=== PATIENT | male | born 2000 | race Hispanic/Latino ===

== ENCOUNTER 2024-10-17 13:57 | Emergency (ER) | payer OTHER, SELFPAY ==
--- NOTE | ~2024-10-17 | CT_ITS ---
EXAMINATION: CT abdomen pelvis wo con DATE: 10/17/2024 15:26 INDICATION: abd pain, flank pain, hematuria TECHNIQUE: Computed tomography (CT) of the abdomen and pelvis was performed without intravenous contr ast. Automated exposure control and iterative reconstruction technique were employed. The dose-length product was 545.48 mGy-cm. COMPARISON: None. FINDINGS: Lower thorax: Unremarkable Liver: Normal. Biliary/Gallbladder: Gallbladder is normal. No bile duct dilation. Pancreas: No mass or duct dilation. Spleen: Normal. Adrenals:No mass. Kidneys: No suspicious mass, obstructing stone, or hydronephrosis. GI tract: No small or large bowel dilation. Small appendicoliths. The appendix is mildly dilated to 8 mm. No significant surrounding inflammatory change. Mesentery/Peritoneum: No ascites, mass, or free air. Mild fat stranding at the mesenteric root. Retroperitoneum: No mass. Pelvis: Pelvic organs are within normal limits. Soft Tissues: Soft tissues and body wall unremarkable. Bones: No acute osseous finding. IMPRESSION: Appendix mildly dilated to 8 mm, without inflammatory change, which may be a normal finding for this patient. However, early appendicitis is not excluded. Mild stranding of the mesenteric root, may represent nonspecific mesenteric edema or mild inflammator y change from adjacent structures, such as the pancreas. Correlate with pancreatic labs. Reviewed, dictated and finalized at location K. IMPRESSION: Appendix mildly dilated to 8 mm, without inflammatory change, which may be a no rmal finding for this patient. However, early appendicitis is not excluded. Mild stranding of the mesenteric root, may represent nonspecific mesenteric panda ma or mild inflammatory change from adjacent structures, such as the pancreas. Correlate with pancreatic labs.
[2024-10-17 14:03] VITALS: BP 149/86; PULSE 70; RESP 16; TEMP 36.2; O2SAT 99
--- NOTE | 2024-10-17 14:06 | ED_ITS ---
HPI - Abdominal Pain General Chief Complaint: Urogenital-Male <Meenu Lion PA-C - Last Filed: 10/19/24 17:40> Stated Complaint: Blood in urine-lower back pressure <SARAH Chen Last Filed: 10/19/24 17:40> Time Seen by Provider: 10/17/24 14:06 <Meenu Lion PA-C - Last Filed: 10/19/24 17:40> Focused HPI: This is a 24 year old male that presents to the ER for dysuria, hematuria. Reports low back pain, abdominal pain. No previous history of kidney stones. Denies fever, vomiting. GENERAL: Well-appearing, well-nourished, and in no acute distress. HEAD: Normocephalic, atraumatic. CHEST: Clear to auscultation. No respiratory distress. HEART: Regular rate and rhythm. NEURO: Alert and oriented x3. Patient screened in triage and initial orders placed. Additional care and disposition to be based upon diagnostic testing and treatment. <Meenu Lion PA-C - Last Filed: 10/19/24 17:40> Focused HPI: This is a 24 year old male that presents to the ER for dysuria, hematuria. Reports low back pain, abdominal pain. No previous history of kidney stones. Denies fever, vomiting. GENERAL: Well-appearing, well-nourished, and in no acute distress. HEAD: Normocephalic, atraumatic. CHEST: Clear to auscultation. No respiratory distress. HEART: Regular rate and rhythm. NEURO: Alert and oriented x3. Patient screened in triage and initial orders placed. Additional care and disposition to be based upon diagnostic testing and treatment. <Helena Gutierrez PA-C - Last Filed: 10/17/24 23:47> Source: patient <SARAH Hook Last Filed: 10/17/24 23:47> Mode of arrival: ambulatory <SARAH Hook Last Filed: 10/17/24 23:47> Limitations: no limitations <SARAH Hook Last Filed: 10/17/24 23:47> History of Present Illness HPI narrative: Agree with above HPI. Reports pain and a few drops of hematuria at the end of his stream. Denies concern for STDs. States he has not been sexually active since December. Does masturbate frequent. Denies testicular pain or swelling. < SARAH Hook Last Filed: 10/17/24 23:47> Related Data Allergies/Adverse Reactions: Allergies Allergy/AdvReac Type Severity Reaction Status Date / Time No Known Allergies Allergy Verified 10/17/24 13:58 <SARAH Chen Last Filed: 10/19/24 17:40> Review of Systems 2 Review of Systems: All systems reviewed & are unremarkable except as noted in HPI. <SARAH Hook Last Filed: 10/17/24 23:47> All systems reviewed & are unremarkable except as noted in HPI and below < SARAH Hook Last Filed: 10/17/24 23:47> Exam 2 Narrative: GENERAL: Well appearing, obese with BMI of 31.6, non-toxic, in no acute distress. HEAD: Normocephalic, atraumatic. RESPIRATORY: Airway patent, respirations nonlabored. Clear to auscultation bilaterally, no rales, rhonchi, wheezing. CARDIOVASCULAR: Regular rate and rhythm without murmurs, rubs, or gallops. ABDOMINAL: Soft, no significant tenderness. Nondistended. Normoactive BS. MUSCULOSKELETAL: Moves all extremities. No gross deformities. SKIN: Warm, dry, normal color. NEURO: A&O X3. Speech clear. PSYCHIATRIC: Appropriate mood and affect. Normal interaction. <SARAH Hook Last Filed: 10/17/24 23:47> Course Vital Signs Vital signs: Vital Signs Temperature 97.2 F L 10/17/24 14:03 Pulse Rate 70 10/17/24 14:03 Respiratory Rate 16 10/17/24 14:03 Blood Pressure 149/86 H 10/17/24 14:03 Pulse Oximetry 99 10/17/24 14:03 Temperature 97.2 F L 10/17/24 14:03 Pulse Rate 70 10/17/24 14:03 Respiratory Rate 16 10/17/24 14:03 Blood Pressure 149/86 H 10/17/24 14:03 Pulse Oximetry 99 10/17/24 14:03 <Meenu Lion PA-C - Last Filed: 10/19/24 17:40> Vital Signs Temperature 97.2 F L 10/17/24 14:03 Pulse Rate 70 10/17/24 14:03 Respiratory Rate 16 10/17/24 14:03 Blood Pressure 149/86 H 10/17/24 14:03 Pulse Oximetry 99 10/17/24 14:03 Temperature 97.2 F L 10/17/24 14:03 Pulse Rate 70 10/17/24 14:03 Respiratory Rate 16 10/17/24 14:03 Blood Pressure 149/86 H 10/17/24 14:03 Pulse Oximetry 99 10/17/24 14:03 <Helena Gutierrez PA-C - Last Filed: 10/17/24 23:47> MDM - Abdominal Pain MDM Narrative Medical decision making narrative: W/u here is reassuring. Laboratory studies are unremarkable. UA is completely clear. Gonorrhea, chlamydia, Trichomonas testing is negative. Patient reports he has not been sexually active since December. CT scan of abdomen/pelvis showing some dilation of appendix without inflammatory stranding. Patient does not have any focal right lower quadrant tenderness on exam. Showing possible inflammation of pancreas. Lipase was added on and within normal range. LFTs are otherwise normal. Patient without any upper abdominal pain on exam. Discussed overall reassuring workup. Patient declined genital exam. He denies any testicular pain or swelling to suggest need for ultrasound. Discussed urethritis. He does admit to frequent masturbation. Hematuria and dysuria likely related to this. Will prescribe Pyridium for symptom relief, advised to avoid further masturbation at this time. Will refer to Urology. Discussed strict return precautions. He is in agreement with plan. Feels comfortable going home. Discharged in stable condition. <Helena Gutierrez PA-C - Last Filed: 10/17/24 23:47> Medical Records Attestation: I reviewed the patient's medical records. <Helena Gutierrez PA-C - Last Filed: 10/17/24 23:47> Lab Data Attestation: I reviewed the patient's lab results. <Helena Gutierrez PA-C - Last Filed: 10/17/24 23:47> Result diagrams: 10/17/24 14:54 10/17/24 14:54 <Meenu Lion PA-C - Last Filed: 10/19/24 17:40> Labs: Lab Results 10/17/24 10/17/24 10/17/24 Range/Units 14:45 14:46 14:54 WBC 7.1 (4.5-10.0) K/mm3 RBC 5.57 (4.6-6.20) M/mm3 Hgb 16.6 (14.0-18.0) g/dL Hct 48.4 (42.0-52.0) % MCV 86.9 (80-100) fl MCH 29.8 (26-34) pg MCHC 34.3 (32-36) g/dl RDW 12.3 (11.5-14.5) % Plt Count 245 (150-375) k/mm3 MPV 11.2 H (7.4-10.4) fl Immature Gran % (Auto) 0.4 (0-0.5) % Neut % (Auto) 68.9 (45.5-73.1) % Lymph % (Auto) 17.8 L (18.3-44.2) % Leon % (Auto) 8.1 (2.6-8.5) % Eos % (Auto) 3.7 (0-4.4) % Baso % (Auto) 1.1 (0.2-1.2) % Lymph # (Auto) 1.26 (0.9-3.2) K/mm3 Leon # (Auto) 0.6 (0.1-0.6) K/mm3 Eos # (Auto) 0.3 (0-0.3) K/mm3 Baso # (Auto) 0.1 (0.0-0.1) K/mm3 Abs Immat Gran (auto) 0.03 (0.00-0.031) K/mm3 Absolute Neuts (auto) 4.9 (1.3-6.7) K/mm3 Absolute Nucleated RBC 0.000 (0.0-0.012) K/mm3 Nucleated RBC % 0.0 (0.0-0.2) % Sodium 141 (137-145) mmol/L Potassium 3.7 (3.4-5.0) mmol/L Chloride 105 (98-107) mmol/L Carbon Dioxide 25 (22-30) mmol/L Anion Gap 11 (4-12) mmol/L BUN 15 (9-20) mg/dL Creatinine 0.79 (0.7-1.3) mg/dL Estim Creat Clear Calc 128 ml/min Estimated GFR > 60 (59 - ) Glucose 94 (65-110) mg/dL Calcium 9.2 (8.4-10.2) mg/dL Total Bilirubin 0.6 (0.2-1.3) mg/dL AST 31 (17-59) U/L ALT 36 (6-50) U/L Alkaline Phosphatase 106 (38-126) U/L Total Protein 8.0 (6.3-8.2) g/dL Albumin 5.0 (3.5-5.1) g/dL Lipase 49 (23-300) U/L Urine Color Yellow (Yellow) Urine Appearance Clear (Clear) Urine pH 7.5 (5.0-9.0) Ur Specific Gurley 1.023 (1.001-1.035) Urine Protein Negative (Negative) mg/dL Urine Glucose (UA) Negative (Negative) mg/dL Urine Ketones Negative (Negative) mg/dL Ur Blood (Man) Negative (Negative) Urine Nitrate Negative (Negative) Urine Bilirubin Negative (Negative) Urine Urobilinogen 0.2 (<2.0) mg/dL Leukocyte Esterase Rfl Negative (Negative) MACARENA/UL C. trachomatis (PCR) Not detected (NOT DETECTE) N. gonorrhoeae (PCR) Not detected (NOT DETECTE) T. vaginalis (PCR) Not detected (NOT DETECTE) <Meenu Lion PA-C - Last Filed: 10/19/24 17:40> Lab Results 10/17/24 10/17/24 10/17/24 Range/Units 14:45 14:46 14:54 WBC 7.1 (4.5-10.0) K/mm3 RBC 5.57 (4.6-6.20) M/mm3 Hgb 16.6 (14.0-18.0) g/dL Hct 48.4 (42.0-52.0) % MCV 86.9 (80-100) fl MCH 29.8 (26-34) pg MCHC 34.3 (32-36) g/dl RDW 12.3 (11.5-14.5) % Plt Count 245 (150-375) k/mm3 MPV 11.2 H (7.4-10.4) fl Immature Gran % (Auto) 0.4 (0-0.5) % Neut % (Auto) 68.9 (45.5-73.1) % Lymph % (Auto) 17.8 L (18.3-44.2) % Leon % (Auto) 8.1 (2.6-8.5) % Eos % (Auto) 3.7 (0-4.4) % Baso % (Auto) 1.1 (0.2-1.2) % Lymph # (Auto) 1.26 (0.9-3.2) K/mm3 Leon # (Auto) 0.6 (0.1-0.6) K/mm3 Eos # (Auto) 0.3 (0-0.3) K/mm3 Baso # (Auto) 0.1 (0.0-0.1) K/mm3 Abs Immat Gran (auto) 0.03 (0.00-0.031) K/mm3 Absolute Neuts (auto) 4.9 (1.3-6.7) K/mm3 Absolute Nucleated RBC 0.000 (0.0-0.012) K/mm3 Nucleated RBC % 0.0 (0.0-0.2) % Sodium 141 (137-145) mmol/L Potassium 3.7 (3.4-5.0) mmol/L Chloride 105 (98-107) mmol/L Carbon Dioxide 25 (22-30) mmol/L Anion Gap 11 (4-12) mmol/L BUN 15 (9-20) mg/dL Creatinine 0.79 (0.7-1.3) mg/dL Estim Creat Clear Calc 128 ml/min Estimated GFR > 60 (59 - ) Glucose 94 (65-110) mg/dL Calcium 9.2 (8.4-10.2) mg/dL Total Bilirubin 0.6 (0.2-1.3) mg/dL AST 31 (17-59) U/L ALT 36 (6-50) U/L Alkaline Phosphatase 106 (38-126) U/L Total Protein 8.0 (6.3-8.2) g/dL Albumin 5.0 (3.5-5.1) g/dL Lipase 49 (23-300) U/L Urine Color Yellow (Yellow) Urine Appearance Clear (Clear) Urine pH 7.5 (5.0-9.0) Ur Specific Gurley 1.023 (1.001-1.035) Urine Protein Negative (Negative) mg/dL Urine Glucose (UA) Negative (Negative) mg/dL Urine Ketones Negative (Negative) mg/dL Ur Blood (Man) Negative (Negative) Urine Nitrate Negative (Negative) Urine Bilirubin Negative (Negative) Urine Urobilinogen 0.2 (<2.0) mg/dL Leukocyte Esterase Rfl Negative (Negative) MACARENA/UL C. trachomatis (PCR) Not detected (NOT DETECTE) N. gonorrhoeae (PCR) Not detected (NOT DETECTE) T. vaginalis (PCR) Not detected (NOT DETECTE) <SARAH Hook Last Filed: 10/17/24 23:47> Imaging Data Attestation: I personally reviewed and interpreted this imaging study as follows: < SARAH Hook Last Filed: 10/17/24 23:47> Radiologist's impression: ITS Impressions Abdomen/Pelvis CT 10/17/24 15:28 IMPRESSION: Appendix mildly dilated to 8 mm, without inflammatory change, which may be a normal finding for this patient. However, early appendicitis is not excluded. Mild stranding of the mesenteric root, may represent nonspecific mesenteric edema or mild inflammatory change from adjacent structures, such as the pancreas. Correlate with pancreatic labs. <SARAH Chen Last Filed: 10/19/24 17:40> ITS Impressions Abdomen/Pelvis CT 10/17/24 15:28 IMPRESSION: Appendix mildly dilated to 8 mm, without inflammatory change, which may be a normal finding for this patient. However, early appendicitis is not excluded. Mild stranding of the mesenteric root, may represent nonspecific mesenteric edema or mild inflammatory change from adjacent structures, such as the pancreas. Correlate with pancreatic labs. <Helena Gutierrez PA-C - Last Filed: 10/17/24 23:47> Critical Care Time Critical Care Time Critical Care Time: No <SARAH Chen Last Filed: 10/19/24 17:40> Discharge Plan Discharge Clinical Impression: Urethritis <SARAH Chen Last Filed: 10/19/24 17:40> Patient Disposition: Home <SARAH Chen Last Filed: 10/19/24 17:40> Condition: Stable <SARAH Chen Last Filed: 10/19/24 17:40> Instructions: Antibiotic Form, Nonspecific Urethritis in Men (ED), Urethritis (ED) <SARAH Chen Last Filed: 10/19/24 17:40> Additional Instructions: Take Pyridium as prescribed for painful urination. Continue to monitor symptoms. Follow-up with urology for further evaluation. Return to the ED if you experience worsening or severe pain/bleeding, pain or swelling in testicles, severe abdominal or back pain, unable to keep down food or drink, persistent fevers, or any other symptoms of concern. <SARAH Chen Last Filed: 10/19/24 17:40> Patient Language: Turkish <SARAH Chen Last Filed: 10/19/24 17:40> Prescriptions: New phenazopyridine [Pyridium] 200 mg tablet 200 mg PO TID 0 Days Qty: 6 0RF <SARAH Chen Last Filed: 10/19/24 17:40> Follow-up/Referrals: Salvador Guerrero MD [Physician] - (UROLOGY) PHYSICIAN,TESTER/LIFT TRUCKER [Primary Care Provider] - <SARAH Chen Last Filed: 10/19/24 17:40> Time of Disposition: 18:05 <SARAH Chen Last Filed: 10/19/24 17:40> 18:05 <SARAH Hook Last Filed: 10/17/24 23:47>
[2024-10-17 15:04] LABS: Basophils Absolute Auto 0.1 K/mm3 (0.0-0.1); Basophils Percent Auto 1.1 % (0.2-1.2); Eosinophils Absolute Auto 0.3 K/mm3 (0-0.3); Eosinophils Percent Auto 3.7 % (0-4.4); Hematocrit 48.4 % (42.0-52.0); Hemoglobin 16.6 g/dL (14.0-18.0); Immature Granulocyte Absolute 0.03 K/mm3 (0.00-0.031); Immature Granulocyte Percent A 0.4 % (0-0.5); Lymphocytes Absolute Auto 1.26 K/mm3 (0.9-3.2); Lymphocytes Percent Auto 17.8 % (18.3-44.2); Mean Corpuscular HGB Conc 34.3 g/dl (32-36); Mean Corpuscular Hemoglobin 29.8 pg (26-34); Mean Corpuscular Volume 86.9 fl (80-100); Mean Platelet Volume 11.2 fl (7.4-10.4); Monocytes Absolute Auto 0.6 K/mm3 (0.1-0.6); Monocytes Percent Auto 8.1 % (2.6-8.5); Neutrophils Absolute Auto 4.9 K/mm3 (1.3-6.7); Neutrophils Percent Auto 68.9 % (45.5-73.1); Platelet Count Result 245 k/mm3 (150-375); Red Blood Count 5.57 M/mm3 (4.6-6.20); Red Cell Distribution Width 12.3 % (11.5-14.5); White Blood Count 7.1 K/mm3 (4.5-10.0)
[2024-10-17 15:05] LABS: Add Urine Microscopic? NO; Appearance Urine Clear (Clear); Bilirubin Urine Negative (Negative); Blood Urine Negative (Negative); Color Urine Yellow (Yellow); Glucose Urine UA Negative (Negative); Ketones Urine Negative (Negative); Leukocyte Esterase Ur Negative LEU/UL (Negative); Nitrate Urine Negative (Negative); Protein Urine Negative (Negative); Specific Grav Ur 1.023 (1.001-1.035); Urobilinogen Urine 0.2 mg/dL (<2.0); pH Urine 7.5 (5.0-9.0)
[2024-10-17 15:28] LABS: Alanine Aminotransferase 36 U/L (6-50); Alkaline Phosphatase 106 U/L (38-126); Anion Gap 11 mmol/L (4-12); Aspartate Amino Transferase 31 U/L (17-59); Bilirubin,Total 0.6 mg/dL (0.2-1.3); Blood Urea Nitrogen 15 mg/dL (9-20); Calcium 9.2 mg/dL (8.4-10.2); Carbon Dioxide 25 mmol/L (22-30); Chloride 105 mmol/L (98-107); Estimated CRCL calculation 128 ml/min; Estimated Glomerular Filt Rate > 60; Glucose 94 mg/dL (65-110); Potassium 3.7 mmol/L (3.4-5.0); Sodium 141 mmol/L (137-145)
[2024-10-17 17:22] LABS: Lipase 49 U/L (23-300)
[2024-10-17 17:28] LABS: Trichomonas Vag PCR NOT DETECTED (NOT DETECTE)
[2024-10-17 17:53] LABS: Chlamydia trachomatis NOT DETECTED (NOT DETECTE); Neisseria gonorrhoeae PCR NOT DETECTED (NOT DETECTE)
--- OUTSIDE RECORDS SUMMARY | 2024-10-17 18:10 | XMS_ITS | Clinical Summary ---
Author Organization [facility] Address [address] [address] Phone Care Team Providers Care Brassiere Cup Mold Cutter Name Role Phone Reynaldo Mcgee MD Primary Care Provider + Allergies No known active allergies Medications hydrOXYzine (ATARAX) 25 MG Tablet Take 25 mg by mouth every 4 hours as needed. 07/23/2022 Active propranolol (INDERAL) 10 MG Tablet Take 1 Tablet by mouth 2 times daily as needed. 90 Tablet 08/19/2022 Active QUEtiapine Fumarate 300 MG Tablet Take 1 Tablet by mouth nightly. 30 Tablet 09/24/2022 Active sertraline (ZOLOFT) 50 MG TabletIndicatio ns:Panic Disorder Take 1 Tablet by mouth daily. Indications: Panic Disorder 30 Tablet 09/24/2022 Active Family History Medical History Relation Name Comments ADD / ADHD Brother Alcohol Abuse Father No Known Problems Mother ADD / ADHD Sister Relation Name Status Comments Brother Alive Father Alive Mother Alive Sister Alive Social History Tobacco Use Types Packs/Day Years Used Date Smoking Tobacco: Former Cigarettes Smokeless Tobacco: Former Tobacco Cessation:Counseling Given: Not Answered Alcohol Use Standard Drinks/Week Comments Not Currently 0 (1 standard drink = 0.6 oz pur e alcohol) last drank end june Sexually Active Control Partners Comments Not Currently Sex and Gender Information Value Date Recorded Sex Assigned at Not on file 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 Gender Identity Not on file Sexual Orientation Not on file Last Filed Vital Signs Vital Sign Reading Time Taken Comments Blood Pressure 100/65 09/24/2022 11:15 AM CDT Pulse 98 09/24/2022 11:15 AM CDT Temperature 36.2 C (97.2 F) 09/24/2022 11:15 AM CDT Respiratory Rate 18 09/24/2022 11:15 AM CDT Oxygen Saturation - - Inhaled Oxygen Concentration - - Weight 69.9 kg (154 lb) 08/11/2022 9:29 AM CDT Height 180.3 cm (5' 11 ) 08/11/2022 9:29 AM CDT Body Mass Index 21.48 08/11/2022 9:29 AM CDT Plan of Treatment Health Maintenance Due Date Last Done Comments Hepatitis C Virus (HCV) Screening 2001 Meningococcal B Immunization (1 of 2 - Standard) 2017 Influenza Immunization (#1) 01/31/202404/02, 04/26/2007, 04/16/2006 SARS-COV-2 Immunization ( season) 2024 06/21/2021, 09/27/2020, 09/06/2020 Respiratory Syncytial Virus (RSV) Immunization (Adult) (1 - 1-dose 75+ series) 01/04/2076 Hepatitis B Immunization Completed 002, 2001, 2001 Pneumococcal Immunization Combined Aged Out 2001, 2001, 2001 No longer eligible based on patient's age to complete this topic DTaP/Tdap/Td Immunization Discontinued 2011, 01/24/2005, 07/06/2002, Additional history exists TdaP Immunization Completed 11/27/2011 Human Papillomavirus (HPV) Immunization Completed 04/18/2013, 11/30/2012, 09/30/2012 Meningococcal Immunization (ACWY) Completed 10/28/2017, 09/30/2012 Rotavirus Immunization Aged Out No lo nger eligible based on patient's age to complete this topic Insurance [employer] Care Teams Brassiere Cup Mold Cutter Relationship Specialty Start Date End Date Reynaldo Mcgee MD [address] [address] PCP - General Family Medicine 08/11/22
--- OUTSIDE RECORDS SUMMARY | 2024-10-17 18:10 | XMS_ITS | Encounter Summary ---
Author Organization [facility] Address [address] [place] [address] Phone Care Team Providers Care Convenience Store Clerk Name Role Phone Reynaldo Mcgee MD Primary Care Provider + Encounter Details Date Type Department Care Team (Late st Contact Info) Description 10/03/2022 Lab Requisition [facility] [address] [place] [id number] Otilia Shah, LINDA, PRIVATE BRANCH EXCHANGE SERVICE ADVISER [address] [place], [place] [id number] Alcohol dependence, uncomplicated (HCC); Cannabis dependence, uncomplicated (HCC); Bipolar disorder, unspecified (HCC) Social History Tobacco Use Types Packs/Day Years Used Date Smoking Tobacco: Former Cigarettes Smokeless Tobacco: Former Alcohol Use Standard Drinks/Week Comments Not Currently 0 (1 standard drink = 0.6 oz pur e alcohol) last drank end june Sexually Active Control Partners Comments Not Currently Sex and Gender Information Value Date Recorded Sex Assigned at Not on file 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 No / Unsure 09/25/2022 9:10 AM CDT documented as of this encounter Plan of Treatment Not on file documented as of this encounter Procedures Procedure Name Priority Date/Time Associated Diagnosis Comments CBC WITH AUTO DIFFERENTIAL Routine 10/03/2022 11:47 AM CDT Alcohol dependence, uncomplicated (HCC) Cannabis dependence, uncomplicated (HCC) Bipolar disorder, unspecified (HCC) COMPLETE BLOOD COUNT (CBC) WITH DIFF Routine 10/03/2022 11:47 AM CDT Alcohol dependence, uncomplicated (HCC) Cannabis dependence, uncomplicated (HCC) Bipolar disorder, unspecified (HCC) MAGNESIUM (MG) Routine 10/03/2022 7:40 AM CDT Alcohol dependence, uncomplicated (HCC) Cannabis dependence, uncomplicated (HCC) Bipolar disorder, unspecified (HCC) CMP (COMPREHENSIVE METABOLIC PANEL) Routine 10/03/2022 7:40 AM CDT Alcohol dependence, uncomplicated (HCC) Cannabis dependence, uncomplicated (HCC) Bipolar disorder, unspecified (HCC) documented in this encounter Results * (ABNORMAL) CBC WITH AUTO DIFFERENTIAL (10/03/2022 11:47 AM CDT) WBC 6.97 4.00 - 12.00 10(3)/mcL 10/03/2022 12:51 PM CDT [facility] RBC 5.50 4.40 - 5.80 10(6)/mcL 10/03/2022 12:51 PM CDT [facility] HEMOGLOBIN (HGB) 16.6(H) 13.0 - 16.5 g/dL 10/03/2022 12:51 PM CDT [facility] HEMATOCRIT (HCT) 48.4 38.0 - 50.0 % 10/03/2022 12:51 PM CDT [facility] MCV 88.0 82.0 - 96.0 fL 10/03/2022 12:51 PM CDT [facility] MCH 30.2 26.0 - 32.0 pg 10/03/2022 12:51 PM CDT [facility] MCHC 34.3 31.0 - 36.0 g/dL 10/03/2022 12:51 PM CDT [facility] PLATELET COUNT 261 140 - 440 10(3)/mcL 10/03/2022 12:51 PM CDT [facility] RDW 12.7 11.8 - 15.5 % 10/03/2022 12:51 PM CDT [facility] MPV 11.0 8.0 - 12.6 fL 10/03/2022 12:51 PM CDT [facility] NEUTROPHILS 55.1 40.0 - 68.0 % 10/03/2022 12:51 PM CDT [facility] LYMPHOCYTES 27.0 19.0 - 49.0 % 10/03/2022 12:51 PM CDT [facility] MONOCYTES 9.3 3.0 - 13.0 % 10/03/2022 12:51 PM CDT [facility] EOSINOPHILS 7.5 0.0 - 8.0 % 10/03/2022 12:51 PM T [facility] BASOPHILS 1.1(H) 0.0 - 1.0 % 10/03/2022 12:51 PM CDT [facility] ABSOLUTE NEUTROPHILS 3.84 1.40 - 5.30 10(3)/[facility] 10/03/2022 12:51 PM CDT [facility] ABSOLUTE LYMPHOCYTES 1.88 0.90 - 3.30 10(3)/[facility] 10/03/2022 12:51 PM CDT [facility] ABSOLUTE MONOCYTES 0.65 0.10 - 0.90 10(3)/[facility] 10/03/2022 12:51 PM CDT [facility] ABSOLUTE EOSINOPHIL 0.52(H) 0.00 - 0.50 10(3)/[facility] 10/03/2022 12:51 PM CDT [facility] ABSOLUTE BASOPHILS 0.08 0.00 - 0.10 10(3)/[facility] 10/03/2022 12:51 PM [facility] NRBC PER 100 WBC 0 10/04/19 12:51 PM [facility] Blood Venipuncture / Unknown 10/03/2022 11:47 AM CDT 10/03/2022 10:12 AM CDT Otilia Shah APRN, NEGRO HEMATOLOGY ORDERABLE S Final Result Performing Organization Address [facility]/ZIP Co de Phone Number [place] [address], [place] [phone] * MAGNESIUM (MG) (10/03/2022 7:40 AM CDT) MAGNESIUM 2.4 1.6 - 2.6 mg/dL [facility] [id number] B 10/03/2022 11:26 AM CDT [facility] Blood Venipuncture / Unknown 10/03/2022 7:40 AM CDT 10/03/2022 10:12 AM CDT Otilia Shah APRN, NEGRO CHEMISTRY ORDERABLES Final Result Performing Organization Address [facility]/ZIP Co de Phone Number [place] [address], [place] [phone] * (ABNORMAL) CMP (COMPREHENSIVE METABOLIC PANEL) (10/03/2022 7:40 AM CDT) SODIUM 140 136 - 145 mmol/L [facility] [id number] B 10/03/2022 11:26 AM CDT [facility] POTASSIUM 3.7 3.5 - 5.1 mmol/L [facility] [id number] B 10/03/2022 11:26 AM CDT [facility] CHLORIDE 104 98 - 107 mmol/L [facility] [id number] B 10/03/2022 11:26 AM CDT [facility] CO2, VENOUS 27 22 - 30 mmol/L [facility] [id number] B 10/03/2022 11:26 AM CDT [facility] ANION GAP 9.0 <18.0 mmol/L [facility] [id number] B 10/03/2022 11:26 AM CDT [facility] GLUCOSE 84 70 - 99 mg/dL [facility] [id number] B 10/03/2022 11:26 AM CDT [facility] BUN 18 9 - 21 mg/dL [facility] [id number] B 10/03/2022 11:26 AM CDT [facility] CREATININE, BLOOD 0.97 0.70 - 1.30 mg/dL [facility] [id number] B 10/03/2022 11:26 AM CDT [facility] BUN/CREATININE RATIO 19 12 - 20 ratio [facility] [id number] B 10/03/2022 11:26 AM CDT [facility] TOTAL PROTEIN 7.7 6.3 - 8.2 g/dL [facility] [id number] B 10/03/2022 11:26 AM CDT [facility] ALBUMIN 5.1(H) 3.5 - 5.0 g/dL [facility] [id number] B 10/03/2022 11:26 AM CDT [facility] A/G RATIO 2.0 1.0 - 2.2 [facility] [id number] B 10/03/2022 11:26 AM CDT [facility] CALCIUM 9.7 8.7 - 10.5 mg/dL [facility] [id number] B 10/03/2022 11:26 AM CDT [facility] T BILI 0.7 0.2 - 1.2 mg/dL [facility] [id number] B 10/03/2022 11:26 AM T [facility] SGOT (AST) 31 5 - 34 U/L [facility] [id number] B 10/03/2022 11:26 AM CDT [facility] SGPT (ALT) 81(H) 0 - 55 U/L [facility] [id number] B 10/03/2022 11:26 AM T [facility] ALKALINE PHOSPHATASE 98 40 - 150 U/L [facility] [id number] B 10/03/2022 11:26 AM T [facility] GFR, ESTIMATED >60 >=60 [facility] [id number] B 10/03/2022 11:26 AM CDT [facility] Comment: Creatinine Clearance is the preferred criteria for selecting drug dose adjustments in renally impaired patients. The GFR is provided as additional pertinent clinical information. GFR is reported in mL/min/1.73 sq m. Calculation based on the Chronic Kidney Disease Epidemiology Collaboration (CKD- EPI) equation refit without adjustment for race. GFR, EST. >60 >=60 [facility] [id number] B 10/03/2022 11:26 AM CDT [facility] GFR, EST. NONAFRICAN >60 >=60 [facility] [id number] B 10/03/2022 11:26 AM CDT [facility] Blood Venipuncture / Unknown 10/03/2022 7:40 AM CDT 10/03/2022 10:12 AM CDT us Otilia Shah MANUAL TESTER, PRIVATE BRANCH EXCHANGE SERVICE ADVISER CHEMISTRY ORDERABLES Final Result Performing Organization Address [facility]/State/[facility] Co de Phone Number [facility] [address] [place] [address], [place] [phone] documented in this encounter Visit Diagnoses Diagnosis Alcohol dependence, uncomplicated (HCC) Cannabis dependence, uncomplicated (HCC) Cannabis dependence, unspecified Bipolar disorder, unspecified (HCC) Bipolar disorder, unspecified documented in this encounter Care Teams Convenience Store Clerk Relationship Specialty Start Date End Date Reynaldo Mcgee MD [address] [address] PCP - General Family Medicine 08/11/22 documented as of this encounter
--- OUTSIDE RECORDS SUMMARY | 2024-10-17 18:10 | XMS_ITS | Encounter Summary ---
Author Organization [facility] Address [address] [place] [address] Care Team Providers Care Collection Technician Name Role Phone Sailaja Jon MD Primary Care Provider [phone] Bessy Escobedo MD Unavailable [phone] Bessy Xavier MD Unavailable Unavailable Thong Yun MD Unavailable [phone] Atiya Romero RN Unavailable Unavailable Nurse, Nr RN Unavailable Unavailable Lynn Mooney MD Unavailable [phone] Yoli Charlton Unavailable Unavailable Candelaria Arreola MD Unavailable Unavaila Param Brock MD Primary Care Provider [phone] Encounter Details Date Type Department Care Team (Late st Contact Info) Description 2001 [facility] [address] [facility] [place] [address] Bessy Escobedo MD [address] [place] [address] Social History Tobacco Use Types Packs/Day Years Used Date Smoking Tobacco: Never Assessed Sex and Gender Information Value Date Recorded Sex Assigned at Not on file Gender Identity Not on file Sexual Orientation Not on file documented as of this encounter Plan of Treatment Not on file documented as of this encounter Visit Diagnoses Not on filedocumented in this encounter Care Teams Collection Technician Relationship Specialty Start Date End Date Sailaja Jon MD [facility] [address], [address] [place], [place] [address] PCP - General 08/23/03 10/15/16 Param Woods MD PCP - General Pediatrics 10/16/16 Bessy Escobedo MD [address] [place] [address] 11/16/09 Bessy Xavier MD [address] [place] [address] 11/16/09 Thong Yun MD [address] [place] [id number] 11/16/09 Atiya Romero, RN 11/16/09 Nurse, Nr, RN 11/16/09 Lynn Mooney MD [facility] [address], [address] [place] [address] 11/16/09 Yoli Charlton 11/16/09 Candelaria Arreola MD 11/16/09 documented as of this encounter
--- OUTSIDE RECORDS SUMMARY | 2024-10-17 18:10 | XMS_ITS | Encounter Summary ---
Author Organization [facility] Address [address] [place] [address] Care Team Providers Care Clinical Technician Name Role Phone Sailaja Jon MD Primary Care Provider [phone] Bessy Escobedo MD Unavailable [phone] Bessy Xavier MD Unavailable Unavailable Thong Yun MD Unavailable [phone] Atiya Romero RN Unavailable Unavailable Nurse, Nr RN Unavailable Unavailable Lynn Mooney MD Unavailable [phone] Yoli Charlton Unavailable Unavailable Candelaria Arreola MD Unavailable Unavaila Param Brock MD Primary Care Provider [phone] Encounter Details Date Type Department Care Team (Late st Contact Info) Description 2001 Duplicate - Created in Error [address] [place] [address] Sailaja Jon MD [address] [place] [address] [address] [place] [address] Social History Tobacco Use Types Packs/Day Years Used Date Smoking Tobacco: Never Assessed Sex and Gender Information Value Date Recorded Sex Assigned at Not on file Gender Identity Not on file Sexual Orientation Not on file documented as of this encounter Plan of Treatment Not on file documented as of this encounter Visit Diagnoses Not on filedocumented in this encounter Care Teams Clinical Technician Relationship Specialty Start Date End Date Sailaja Jon MD [address] [facility] [address], [address] [place], [place] [address] PCP - General 08/23/03 10/15/16 Param Woods MD PCP - General Pediatrics 10/16/16 Bessy Escobedo MD [address] [place] [address] 11/16/09 Bessy Xavier MD [address] [place] [address] 11/16/09 Thong Yun MD [address] [place] [address] 11/16/09 Atiya Romero, RN 11/16/09 Nurse, Nr, RN 11/16/09 Lynn Mooney MD [facility] [address], [address] [place] [address] 11/16/09 Yoli Charlton 11/16/09 Candelaria Arreola MD 11/16/09 documented as of this encounter
--- OUTSIDE RECORDS SUMMARY | 2024-10-17 18:10 | XMS_ITS | Encounter Summary ---
Author Organization [facility] Address [address] [place] [address] Care Team Providers Care Taker Off Drying Kiln Name Role Phone Sailaja Jon MD Primary Care Provider [phone] Bessy Escobedo MD Unavailable [phone] Bessy Xavier MD Unavailable Unavailable Thong Yun MD Unavailable [phone] Atiya Romero RN Unavailable Unavailable Nurse, Shanna RN Unavailable Unavailable Lynn Mooney MD Unavailable [phone] Yoli Charlton Unavailable Unavailable Candelaria Arreola MD Unavailable Unavaila Param Brock MD Primary Care Provider [phone] Encounter Details Date Type Department Care Team (Late st Contact Info) Description 2001 Conversion [facility] Bessy Escobedo MD [address] [place] [address] Social History Tobacco Use Types Packs/Day Years Used Date Smoking Tobacco: Never Assessed Sex and Gender Information Value Date Recorded Sex Assigned at Not on file Gender Identity Not on file Sexual Orientation Not on file documented as of this encounter Plan of Treatment Not on file documented as of this encounter Procedures Procedure Name Priority Date/Time Associated Diagnosis Comments CHEST, PA AND LAT ([id number]) Routine 2001 1:24 PM CDT documented in this encounter Results * CHEST, PA AND LAT (2001 1:24 PM CDT) REPORT STATUS CHEST, PA & LAT CPT: [id number] DATE: 01, 1340 HOURS COMPARISON: NOT AVAILABLE HISTORY: WHEEZING FINDINGS: AP AND LATERAL VIEWS OF THE CHEST DEMONSTRATE HYPERINFLATION OF THE LUNGS BILATERALLY. THERE IS EVIDENCE OF INCREASED PERIBRONCHIAL CUFFING. NO EFFUSIONS, PNEUMOTHORACES, OR INFILTRATES. THE CARDIAC SILHOUETTE IS NORMAL. THIS EXAMINATION AND REPORT HAVE BEEN REVIEWED BY THE ATTENDING RADIOLOGIST WHOSE NAME APPEARS ON THIS REPORT. IMPRESSION: 1. FINDINGS CONSISTENT WITH BRONCHIOLITIS. REPORT ELECTRONICALLY SIGNED ALBERTO SANTIAGO M.D. DXRAD Anatomical Region Laterality Modality Other 2001 1:24 PM CDT Narrative 2001 1:24 PM CDT Ordered by an unspecified provider. Provider Unknown RADIOLOGY documented in this encounter Visit Diagnoses Not on filedocumented in this encounter Care Teams Taker Off Drying Kiln Relationship Specialty Start Date End Date Sailaja Jon MD [address] [facility] [address], [address] [place], [place] [address] PCP - General 08/23/03 10/15/16 Param Woods MD PCP - General Pediatrics 10/16/16 Bessy Escobedo MD [facility] [address], [address] [place] [address] 11/16/09 Bessy Xavier MD [facility] [address], [address] [place] [address] 11/16/09 Thong Yun MD [address] [place] [address] 11/16/09 Atiya Romero, RN 11/16/09 Nurse, Nr, RN 11/16/09 Lynn Mooney MD [address] [place] [address] 11/16/09 Yoli Charlton 11/16/09 Candelaria Arreola MD 11/16/09 documented as of this encounter
--- OUTSIDE RECORDS SUMMARY | 2024-10-17 18:10 | XMS_ITS | Encounter Summary ---
Author Organization [facility] Address [address] [place] [address] Care Team Providers Care Test Consultant Name Role Phone Sailaja Jon MD Primary Care Provider [phone] Bessy Escobedo MD Unavailable [phone] Bessy Xavier MD Unavailable Unavailable Thong Yun MD Unavailable [phone] Atiya Romero RN Unavailable Unavailable Nurse, Nr RN Unavailable Unavailable Lynn Mooney MD Unavailable [phone] Yoli Charlton Unavailable Unavailable Candelaria Arreola MD Unavailable Unavaila Param Brock MD Primary Care Provider [phone] Encounter Details Date Type Department Care Team (Late st Contact Info) Description 2001 Duplicate - Created in Error [address] [place] [address] Sailaja Jon MD [address] [place] [address] [address], [address] [place] [address] Social History Tobacco Use Types [...] on filedocumented in this encounter Care Teams Test Consultant Relationship Specialty Start Date End Date Sailaja Jon MD [address] [facility] [address], [address] [place], [place] [address] PCP - General 08/23/03 10/15/16 Param Woods MD PCP - General Pediatrics 10/16/16 Bessy Escobedo MD [address], [address] [place] [address] 11/16/09 Bessy Xavier MD [address], [address] [place] [address] 11/16/09 Thong Yun MD [address] [place] [address] 11/16/09 Atiya Romero, RN 11/16/09 Nurse, Nr, RN 11/16/09 Lynn Mooney MD [facility] [address], [address] [place] [address] 11/16/09 Yoli Charlton 11/16/09 Candelaria Arreola MD 11/16/09 documented as of this encounter
--- OUTSIDE RECORDS SUMMARY | 2024-10-17 18:11 | XMS_ITS | Encounter Summary ---
Author Organization [facility] Address [address] [place] [address] Care Team Providers Care Eviscerator Name Role Phone Bessy Escobedo MD Unavailable [phone] Bessy Xavier MD Unavailable Unavailable Thong Yun MD Unavailable [phone] Atiya Romero RN Unavailable Unavailable Nurse, Shanna RN Unavailable Unavailable Lynn Mooney MD Unavailable [phone] Yoli Charlton Unavailable Unavailable Candelaria Arreola MD Unavailable Unavaila Param Brock MD Primary Care Provider [phone] Encounter Details Date Type Department Care Team (Late st Contact Info) Description 11/18/[address] [address] Param Woods MD [address] [place] [id number] <No scans attached> Social History Tobacco Use Types Packs/Day Years Used Date Smoking Tobacco: Never Smokeless Tobacco: Never Alcohol Use Standard Drinks/Week Comments No 0 (1 standard drink = 0.6 oz pur e alcohol) Sex and Gender Information Value Date Recorded Sex Assigned at Not on file Gender Identity Not on file Sexual Orientation Not on file documented as of this encounter Plan of Treatment Not on file documented as of this encounter Visit Diagnoses Not on filedocumented in this encounter Care Teams Eviscerator Relationship Specialty Start Date End Date Param Woods MD PCP - General Pediatrics 10/16/16 Bessy Escobedo MD [address] [place] [address] 11/16/09 Bessy Xavier MD [facility] [address], [address] [place] [address] 11/16/09 Thong Yun MD [address] [place] [address] 11/16/09 Atiya Romero, RN 11/16/09 Nurse, Nr, RN 11/16/09 Lynn Mooney MD [facility] [address], [address] [place] [address] 11/16/09 Yoli Charlton 11/16/09 Candelaria Arreola MD 11/16/09 documented as of this encounter
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
--- OUTSIDE RECORDS SUMMARY | 2024-10-17 18:11 | XMS_ITS | Encounter Summary ---
Author Organization [facility] Address [address] [place] [address] Care Team Providers Care Financial Cost Analyst Name Role Phone Sailaja Jon MD Primary Care Provider [phone] Bessy Escobedo MD Unavailable [phone] Bessy Xavier MD Unavailable Unavailable Thong Yun MD Unavailable [phone] Atiya Romero RN Unavailable Unavailable Nurse, Nr RN Unavailable Unavailable Lynn Mooney MD Unavailable [phone] Yoli Charlton Unavailable Unavailable Candelaria Arreola MD Unavailable Unavaila Param Brock MD Primary Care Provider [phone] Encounter Details Date Type Department Care Team (Late st Contact Info) Description 10/04/[address] [place] [address] Sailaja Jon MD [address] [place] [address] [address], [address] [place] [address] <No scans attached> Social History Tobacco Use Types Packs/Day Years Used Date Smoking Tobacco: Never Alcohol Use Standard Drinks/Week Comments [...] on filedocumented in this encounter Care Teams Financial Cost Analyst Relationship Specialty Start Date End Date Sailaja Jon MD [facility] [address], [address] [place], [place] [address] PCP - General 08/23/03 10/15/16 Param Woods MD PCP - General Pediatrics 10/16/16 Bessy Escobedo MD [address], [address] [place] [address] 11/16/09 Bessy Xavier MD [facility] [address], [address] [place] [address] 11/16/09 Thong Yun MD [address] [place] [id number] 11/16/09 Aitya Romero, RN 11/16/09 Nurse, Nr, RN 11/16/09 Lynn Mooney MD [facility] [address], [address] [place] [address] 11/16/09 Yoli Charlton 11/16/09 Candelaria Arreola MD 11/16/09 documented as of this encounter
--- OUTSIDE RECORDS SUMMARY | 2024-10-17 18:11 | XMS_ITS | Encounter Summary ---
Author Organization [facility] Address [address] [place] [address] Care Team Providers Care Family Court Registrar Name Role Phone Sailaja Jon MD Primary Care Provider [phone] Bessy Escobedo MD Unavailable [phone] Bessy Xavier MD Unavailable Unavailable Thong Yun MD Unavailable [phone] Atiya Romero RN Unavailable Unavailable Nurse, Nr RN Unavailable Unavailable Lynn Mooney MD Unavailable [phone] Yoli Charlton Unavailable Unavailable Candelaria Arreola MD Unavailable Unavaila Param Brock MD Primary Care Provider [phone] Encounter Details Date Type Department Care Team (Late st Contact Info) Description 04/06/2002 Duplicate - Created in Error [address] [place] [address] Sailaja Jon MD [address] [place] [address] [address], [address] [place] [address] Social History Tobacco Use Types [...] on filedocumented in this encounter Care Teams Family Court Registrar Relationship Specialty Start Date End Date Sailaja Jon MD [address] [facility] [address], [address] [place], [place] [address] PCP - General 08/23/03 10/15/16 Param Woods MD PCP - General Pediatrics 10/16/16 Bessy Escobedo MD [address], [address] [place] [address] 11/16/09 Bessy Xavier MD [address], [address] [place] [address] 11/16/09 Thong Yun MD [address] [place] [id number] 11/16/09 Atiya Romero, RN 11/16/09 Nurse, Nr, RN 11/16/09 Lynn Mooney MD [facility] [address], [address] [place] [address] 11/16/09 Yoli Charlton 11/16/09 Candelaria Arreola MD 11/16/09 documented as of this encounter
--- OUTSIDE RECORDS SUMMARY | 2024-10-17 18:11 | XMS_ITS | Referral Summary ---
Author Organization [facility] Address [address] [place] [address] Care Team Providers Care Blood Bank Specialist Name Role Phone Jeyson Mcgee MD Primary [...] pain 07/16/2022 Excessive drinking of alcohol 07/16/2022 snf current use of cannabis 07/14/2022 Bipolar I disorder, most rec ent episode mixed, severe without psychotic features (CMD) 01/30/2021 Panic disorder without agoraphobia 11/20/2017 Attention deficit hyperactivity disorder (ADHD) 05/22/2006 Immunizations Immunization Administration Dates Next Due CHRIS Intermolecular 12Y+ (Requires Dilution) 09/27/2020 ,09/27/2020,09/06/2020 DTaP, 5 [...] Rho(D)-IG IM 05/07/2005,05/07/2005 Tdap 11/27/2011 Varicella 12/21/2009,04/06/2002 Social History Tobacco Use Types Packs/Day Years [...] phone, visiting friends or family, going to taoist or club meetings) 5 or more times [...] on file Legal Sex Male 2:28 PM HEALTH CLUB ATTENDANT Gender Identity Not on file Sexual Orientation [...] (148 lb 9.4 oz) 07/15/2022 10:05 PM HEALTH CLUB ATTENDANT Height 180.3 cm (5' 11 ) 07/15/2022 10:05 PM HEALTH CLUB ATTENDANT Body Mass Index 20.72 07/15/2022 10:05 PM HEALTH CLUB ATTENDANT Functional Status * RETIRED Are you deaf or do you have serious difficulty hearing? Answer Date of Assessment Author No 07/15/2022 10:41 PM Raquel Goode, RN * RETIRED Are you blind or do you have serious difficulty seeing, even when wearing glasses? Answer Date of Assessment Author No 07/15/2022 10:41 PM Raquel Goode RN Plan of Treatment Not on file Insurance [employer] Advance Directives Documents on File Type Date Recorded Patient Wood Cutter Expl anation Directives-Other 07/18/2022 11:59 AM [facility] e to Person Making a Declaration for Mental Health Treatment * Full Resuscitation (Latest Code Status on File) Date Activated Date Inactivated Comments 07/15/2022 11:24 PM 07/23/2022 4:08 PM Care Teams Blood Bank Specialist Relationship Specialty Start Date End Date Jeyson Mcgee MD PCP - General Family Practice 07/15/22
--- OUTSIDE RECORDS SUMMARY | 2024-10-17 18:11 | XMS_ITS | Encounter Summary ---
Author Organization [facility] Address [address] [place] [address] Care Team Providers Care Geological Drafter Name Role Phone Sailaja Jon MD Primary Care Provider [phone] Bessy Escobedo MD Unavailable [phone] Bessy Xavier MD Unavailable Unavailable Thong Yun MD Unavailable [phone] Atiya Romero RN Unavailable Unavailable Nurse, Nr RN Unavailable Unavailable Lynn Mooney MD Unavailable [phone] Yoli Charlton Unavailable Unavailable Candelaria Arreola MD Unavailable Unavaila Param Brock MD Primary Care Provider [phone] Encounter Details Date Type Department Care Team (Late st Contact Info) Description 07/06/2002 Duplicate - Created in Error [address] [place] [address] Sailaja Jon MD [address] [place] [address] [address], [address] [place] [address] Social History Tobacco Use Types [...] on filedocumented in this encounter Care Teams Geological Drafter Relationship Specialty Start Date End Date Sailaja Jon MD [address] [facility] Building [address], [address] 0[address] [place], [place] [address] PCP - General 08/23/03 10/15/16 Param Woods MD PCP - General Pediatrics 10/16/16 Bessy Escobedo MD [address], [address] 3[address] [place] [address] 11/16/09 Bessy Xavier MD [address], [address] [place] [address] 11/16/09 Thong Yun MD [address] [place] [address] [id number] 11/16/09 Atiya Romero, RN 11/16/09 Nurse, Nr, RN 11/16/09 Lynn Mooney MD [facility] 105, [address] 3[address] [place] [address] 11/16/09 Yoli Charlton 11/16/09 Candelaria Arreola MD 11/16/09 documented as of this encounter
--- OUTSIDE RECORDS SUMMARY | 2024-10-17 18:11 | XMS_ITS | Encounter Summary ---
Author Organization [facility] Address [address] [place] [address] Care Team Providers Care Medical Interpreter Name Role Phone Sailaja Jon MD Primary Care Provider Bessy Escobedo MD Unavailable [phone] Bessy Xavier MD Unavailable Unavailable Thong Yun MD Unavailable [phone] Atiya Romero RN Unavailable Unavailable Nurse, Nr RN Unavailable Unavailable Lynn Mooney MD Unavailable [phone] Yoli Charlton Unavailable Unavailable Candelaria Arreola MD Unavailable Unavaila Param Brock MD Primary Care Provider [phone] Encounter Details Date Type Department Care Team (Late st Contact Info) Description 2001 Duplicate - Created in Error [address] [place] [address] Sailaja Jon MD [address] [place] [address] [address], [address] [place] [address] Social History Tobacco Use Types [...] on filedocumented in this encounter Care Teams Medical Interpreter Relationship Specialty Start Date End Date Sailaja Jon MD [address] [facility] [address], [address] [place], [place] [address] PCP - General 08/23/03 10/15/16 Param Woods MD PCP - General Pediatrics 10/16/16 Bessy Escobedo MD [address], [address] [place] [address] 11/16/09 Bessy Xavier MD [address], [address] [place] [address] 11/16/09 Thong Yun MD [address] [place] [address] 433717 11/16/09 Atiya Romero, RN 11/16/09 Nurse, Nr, RN 11/16/[address] [facility] [address], [address] [place] [address] 11/16/09 Yoli Charlton 11/16/09 Candelaria Arreola MD 11/16/09 documented as of this encounter
--- OUTSIDE RECORDS SUMMARY | 2024-10-17 18:11 | XMS_ITS | Encounter Summary ---
Author Organization [facility] Address [address] [place] [address] Care Team Providers Care Die Tripper Name Role Phone Sailaja Jon MD Primary Care Provider [phone] Bessy Escobedo MD Unavailable [phone] Bessy Xavier MD Unavailable Unavailable Thong Yun MD Unavailable [phone] Atiya Romero RN Unavailable Unavailable Nurse, Nr RN Unavailable Unavailable Lynn Mooney MD Unavailable [phone] Yoli Charlton Unavailable Unavailable Candelaria Arreola MD Unavailable Unavaila Param Brock MD Primary Care Provider [phone] Encounter Details Date Type Department Care Team (Late st Contact Info) Description 2001 Duplicate - Created in Error [address] [place] [address] Sailaja Jon MD [address] [place] [address] [address], [address] [place] [address] Social History Tobacco Use Types [...] on filedocumented in this encounter Care Teams Die Tripper Relationship Specialty Start Date End Date Sailaja Jon MD [address] [facility] Building 103, [address] 0[address] [place], [place] [address] PCP - General 08/23/03 10/15/16 Param Woods MD PCP - General Pediatrics 10/16/16 Bessy Escobedo MD [address], [address] [place] [address] 11/16/09 Bessy Xavier MD [address], [address] [place] [address] 11/16/09 Thong Yun MD [address] [place] [address] 739357 11/16/09 Atiya Romero, RN 11/16/09 Nurse, Nr, RN 11/16/09 Lynn Mooney MD [facility] 105, [address] [place] [address] 11/16/09 Yoli Charlton 11/16/09 Candlearia Arreola MD 11/16/09 documented as of this encounter
--- OUTSIDE RECORDS SUMMARY | 2024-10-17 18:11 | XMS_ITS | Encounter Summary ---
Author Organization [facility] Address [address] [place] [address] Care Team Providers Care Driller Multiple Spindle Name Role Phone Sailaja Jon MD Primary Care Provider [phone] Bessy Escobedo MD Unavailable [phone] Bessy Xavier MD Unavailable Unavailable Thong Yun MD Unavailable [phone] Atiya Romero RN Unavailable Unavailable Nurse, Nr RN Unavailable Unavailable Lynn Mooney MD Unavailable [phone] Yoli Charlton Unavailable Unavailable Candelaria Arreola MD Unavailable Unavaila Param Brock MD Primary Care Provider [phone] Encounter Details Date Type Department Care Team (Late st Contact Info) Description 2001 Duplicate - Created in Error [address] [place] [address] Bessy Xavier MD Social History Tobacco Use Types Packs/Day Years Used Date Smoking Tobacco: Never Assessed Sex and Gender Information Value Date Recorded Sex Assigned at Not on file Gender Identity Not on file Sexual Orientation Not on file documented as of this encounter Plan of Treatment Not on file documented as of this encounter Visit Diagnoses Not on filedocumented in this encounter Care Teams Driller Multiple Spindle Relationship Specialty Start Date End Date Sailaja Jon MD [address] [place] [address] [address], [address] 0[address] [place] [address] PCP - General 08/23/03 10/15/16 Param Woods MD PCP - General Pediatrics 10/16/16 Bessy Escobedo MD [address], [address] [place] [address] 11/16/09 Bessy Xavier MD [address], [address] [place] [address] 11/16/09 Thong Yun MD [address] [place] [address] 11/16/09 Atiya Romero, ОЛЕГ 11/16/09 Nurse, Nr, RN 11/16/09 Lynn Mooney MD [facility] 105, [address] [place] [address] 11/16/09 Yoli Charlton 11/16/09 Candelaria Arreola MD 11/16/09 documented as of this encounter
--- OUTSIDE RECORDS SUMMARY | 2024-10-17 18:11 | XMS_ITS | Encounter Summary ---
Author Organization [facility] Address [address] [place] [address] Care Team Providers Care Summer Law Clerk Name Role Phone Sailaja Jon MD Primary Care Provider [phone] Bessy Escobedo MD Unavailable [phone] Bessy Xavier MD Unavailable Unavailable Thong Yun MD Unavailable [phone] Atiya Romero RN Unavailable Unavailable Nurse, Nr RN Unavailable Unavailable Lynn Mooney MD Unavailable [phone] Yoli Charlton Unavailable Unavailable Candelaria Arreola MD Unavailable Unavaila Param Brock MD Primary Care Provider [phone] Encounter Details Date Type Department Care Team (Late st Contact Info) Description 2001 Duplicate - Created in Error [facility] [address] [facility] [place] [address] Bessy Escobedo MD [address], [address] [place] [address] Social History Tobacco Use Types [...] on filedocumented in this encounter Care Teams Summer Law Clerk Relationship Specialty Start Date End Date Sailaja Jon MD [address], [address] [place], [place] [address] PCP - General 08/23/03 10/15/16 Param Woods MD PCP - General Pediatrics 10/16/16 Bessy Escobedo MD [address], [address] [place] [address] 11/16/09 Bessy Xavier MD [address], [address] [place] [address] 11/16/09 Thong Yun MD [address] [place] [address] 832337 11/16/09 Atiya Romero, RN 11/16/09 Nurse, Nr, RN 11/16/09 Lynn Mooney MD [facility] 105, [address] [place] [address] 11/16/09 Yoli Charlton 11/16/09 Candelaria Arreola MD 11/16/09 documented as of this encounter
--- OUTSIDE RECORDS SUMMARY | 2024-10-17 18:11 | XMS_ITS | Encounter Summary ---
Author Organization [facility] Address [address] [place] [address] Care Team Providers Care Chief Growth Officer Name Role Phone Sailaja Jon MD Primary Care Provider [phone] Bessy Escobedo MD Unavailable [phone] Bessy Xavier MD Unavailable Unavailable Thong Yun MD Unavailable [phone] Atiya Romero RN Unavailable Unavailable Nurse, Shanna RN Unavailable Unavailable Lynn Mooney MD Unavailable [phone] Yoli Charlton Unavailable Unavailable Candelaria Arreola MD Unavailable Unavaila Param Brock MD Primary Care Provider [phone] Encounter Details Date Type Department Care Team (Latest Contact Info) Description 2001 Conversion Bessy Escobedo MD [address], [address] [place] [address] Social History Tobacco Use Types Packs/Day Years Used Date Smoking Tobacco: Never Assessed Sex and Gender Information Value Date Recorded Sex Assigned at Not on file Gender Identity Not on file Sexual Orientation Not on file documented as of this encounter Plan of Treatment Not on file documented as of this encounter Procedures Procedure Name Priority Date/Time Associated Diagnosis Comments METABOLIC SCREEN (SEND OUT TEST) Routine 2001 3:00 PM CDT CORD BLOOD TYPE Routine 2001 4:00 PM CDT documented in this encounter Results * METABOLIC SCREEN (2001 3:00 PM CDT) METABOLIC SCREEN METABOLIC SCREEN TEST RESULTS NORMAL PER STATE LABOR[facility]. DIANE Comment: [facility]FOR[facility], [place] [address] 2001 3:00 PM CDT 2001 3:00 PM CDT Narrative MISYS - 06/06/2003 4:41 AM ROPING TENDER Ordered by an unspecified provider. Provider Unknown SEND OUT BLOOD [facility] * CORD BLOOD TYPE (2001 4:00 PM CDT) ABO/RH(D) O POSITIVE MISYS 2001 4:00 PM CDT 2001 4:00 PM CDT Narrative MISYS - 06/06/2003 4:55 AM ROPING TENDER Ordered by an unspecified provider. Provider Unknown BLOOD BANK [facility] documented in this encounter Visit Diagnoses Not on filedocumented in this encounter Care Teams Chief Growth Officer Relationship Specialty Start Date End Date Sailaja Jon MD [address] [facility] [address], Room 0[address] [place] [address] PCP - General 08/23/03 10/15/16 Param Woods MD PCP - General Pediatrics 10/16/16 Bessy Escobedo MD [address], [address] [place], [place] [address] 11/16/09 Bessy Xavier MD [facility] 105, [address] [place] [address] 11/16/09 Thong Yun MD [address] [place] [address] 11/16/09 Atiya Romero, RN 11/16/09 Nurse, Nr, RN 11/16/09 Lynn Mooney MD [address], [address] [place] [address] 11/16/09 Yoli Charlton 11/16/09 Candelaria Arreola MD 11/16/09 documented as of this encounter
--- OUTSIDE RECORDS SUMMARY | 2024-10-17 18:11 | XMS_ITS | Encounter Summary ---
Author Organization [facility] Address [address] [place] [address] Care Team Providers Care Knotting Machine Operator Name Role Phone Bessy Escobedo MD Unavailable [phone] Bessy Xavier MD Unavailable Unavailable Thong Yun MD Unavailable [phone] Atiya Romero RN Unavailable Unavailable Nurse, Shanna RN Unavailable Unavailable Lynn Mooney MD Unavailable [phone] Yoli Charlton Unavailable Unavailable Candelaria Arreola MD Unavailable Unavaila Param Brock MD Primary Care Provider [phone] Encounter Details Date Type Department Care Team (Late st Contact Info) Description 10/28/[address] [address] Param Woods MD [address] [place] [address] <No scans attached> Social History Tobacco Use [...] on filedocumented in this encounter Care Teams Knotting Machine Operator Relationship Specialty Start Date End Date Param Woods MD PCP - General Pediatrics 10/16/16 Bessy Escobedo MD [address], [address] [place] [address] 11/16/09 Bessy Xavier MD [facility] 105, [address] [place] [address] 11/16/09 Thong Yun MD [address] [place] [address] 867347 11/16/09 Atiya Romero, RN 11/16/09 Nurse, Nr, RN 11/16/09 Lynn Mooney MD [place] [address], Room [facility] [place] [address] 11/16/09 Yoli Charlton 11/16/09 Candelaria Arreola MD 11/16/09 documented as of this encounter
--- OUTSIDE RECORDS SUMMARY | 2024-10-17 18:11 | XMS_ITS | Encounter Summary ---
Author Organization [facility] Address [address] [place] [address] Care Team Providers Care Power Ballast Machine Operator Name Role Phone Bessy Escobedo MD Unavailable [phone] Bessy Xavier MD Unavailable Unavailable Thong Yun MD Unavailable Atiya Romero RN Unavailable Unavailable Nurse, Shanna RN Unavailable Unavailable Lynn Mooney MD Unavailable [phone] Yoli Charlton Unavailable Unavailable Candelaria Arreola MD Unavailable Unavaila Param Brock MD Primary Care Provider [phone] Encounter Details Date Type Department Care Team (Late st Contact Info) Description 07/25/[address] [address] Param Woods MD [address] [place] [address]66397 <No scans attached> Social History Tobacco Use [...] on filedocumented in this encounter Care Teams Power Ballast Machine Operator Relationship Specialty Start Date End Date Param Woods MD PCP - General Pediatrics 10/16/16 Bessy Escobedo MD [address], [address] [place] [address] 11/16/09 Bessy Xavier MD [facility] 105, [address] [place] [address] 11/16/09 Thong Yun MD [address] [place] [address]2097 11/16/09 Atiya Romero, RN 11/16/09 Nurse, Nr, RN 11/16/09 Lynn Mooney MD [facility] 105, [address] [place] [address] 11/16/09 Yoli Charlton 11/16/09 Candelaria Arreola MD 11/16/09 documented as of this encounter
--- OUTSIDE RECORDS SUMMARY | 2024-10-17 18:11 | XMS_ITS | Encounter Summary ---
Author Organization [facility] Address [address] [place] [address] Care Team Providers Care Top Cutter Name Role Phone Sailaja Jon MD Primary Care Provider [phone] Bessy Escobedo MD Unavailable [phone] Bessy Xavier MD Unavailable Unavailable Thong Yun MD Unavailable [phone] Atiya Romero RN Unavailable Unavailable Nurse, Nr RN Unavailable Unavailable Lynn Mooney MD Unavailable [phone] Yoli Charlton Unavailable Unavailable Candelaria Arreola MD Unavailable Unavaila Param Brock MD Primary Care Provider [phone] Encounter Details Date Type Department Care Team (Late st Contact Info) Description 03/09/[address] [place] [address] Sailaja Jon MD [address] [place] [address] [address], [address] 0177 [place] [address] Social History Tobacco Use Types Packs/Day Years Used Date Smoking Tobacco: Never Assessed Sex and Gender Information Value Date Recorded Sex Assigned at Not on file Gender Identity Not on file Sexual Orientation Not on file documented as of this encounter Plan of Treatment Not on file documented as of this encounter Procedures Procedure Name Priority Date/Time Associated Diagnosis Comments LEAD Routine 03/09/2003 3:30 PM CDT documented in this encounter Results * LEAD (03/09/2003 3:30 PM CDT) LEAD <2 <10 UG/DL DIANE 03/09/2003 3:30 PM CDT 03/09/2003 3:30 PM CDT Narrative MISYS - 05/27/2003 3:32 AM CANCER REGISTRY MANAGER Ordered by an unspecified provider. Provider Unknown [facility] documented in this encounter Visit Diagnoses Not on filedocumented in this encounter Care Teams Top Cutter Relationship Specialty Start Date End Date Sailaja Jon MD [address] [place] [address] [address], [address] [place], [place] [address] PCP - General 08/23/03 10/15/16 Param Woods MD PCP - General Pediatrics 10/16/[address] [facility] [address], [address] [place], [place] [id number] 11/16/[address] [facility] [address], [address] [place] [address] 11/16/09 Thong Yun MD [address] [place] [address] 11/16/09 Atiya Romero, ОЛЕГ 11/16/09 Nurse, Nr, RN 11/16/[address] [facility] [address], [address] [place] [address] 11/16/09 Yoli Charlton 11/16/09 Candelaria Arreola MD 11/16/09 documented as of this encounter
--- OUTSIDE RECORDS SUMMARY | 2024-10-17 18:11 | XMS_ITS | Clinical Summary ---
Author Organization [facility] Care Team Providers Care Visual Aid Expert Name Role Phone Param Woods MD Primary Care Provider [phone] Allergies No known active allergies Medications guaiFENesin (MUCINEX) 600 mg Ta12 Take 600 mg by mouth every 12 (twelve) hours Active pheniramine/p-e ph/acetaminophn (THERAFLU COLD-SORE THROAT, PE, PO) Take by mouth Active fluticasone propionate (FLONASE) 50 mcg/actuation nasal spray apply 2 Sprays to each nostril daily Use 2 sprays per nostril twice daily for 1 week then daily thereafter 16 g 2 Active Active Problems No known active problems Family History Medical History Relation Name Comments No Known Problems Brother No Known Problems Daughter No Known Problems Father No Known Problems Maternal Aunt No Known Problems Maternal Grandfather No Known Problems Maternal Grandmother No Known Problems Maternal Uncle No Known Problems Mother No Known Problems Other No Known Problems Paternal Aunt No Known Problems Paternal Grandfather No Known Problems Paternal Grandmother No Known Problems Paternal Uncle No Known Problems Sister No Known Problems Son Alcohol Abuse Neg Hx Arthritis-Osteo Neg Hx Arthritis-Rheumatoid Neg Hx Asthma Neg Hx Bleeding Prob Neg Hx COPD Neg Hx Cancer Neg Hx Coronary Artery Disease Neg Hx Diabetes Neg Hx High Cholesterol Neg Hx Hypertension Neg Hx Migraines Neg Hx Seizures Neg Hx Stroke Neg Hx Thyroid Disease Neg Hx Relation Name Status Comments Brother Daughter Father Maternal Aunt Maternal Grandfather Maternal Grandmother Maternal Uncle Mother Other Paternal Aunt Paternal Grandfather Paternal Grandmother Paternal Uncle Sister Son Social History Tobacco Use Types Packs/Day Years Used Date Smoking Tobacco: Never Smokeless Tobacco: Never Alcohol Use Standard Drinks/Week Comments Never 0 (1 standard drink = 0.6 oz pur e alcohol) AUDIT-C Answer Date Recorded Frequency of Alcohol Consumption Never 08/30/2019 Average Number of Drinks Not on file 020 Frequency of Binge Drinking Not on file 08/01 Exercise Vital Sign Answer Date Recorde d Days of Exercise per Week 5 days 2019 Minutes of Exercise per Session 60 min 08/30/2019 Sex and Gender Information Value Date Recorded Sex Assigned at Not on file Legal Sex Male 8:31 PM EDT Gender Identity Not on file Sexual Orientation Not on file Last Filed Vital Signs Vital Sign Reading Time Taken Comments Blood Pressure 114/64 10/17/2021 10:11 AM CDT Pulse 90 10/17/2021 10:11 AM CDT Temperature 36.8 C (98.2 F) 10/17/2021 10:11 AM CDT Respiratory Rate 18 10/17/2021 10:11 AM CDT Oxygen Saturation 97% 10/17/2021 10:11 AM CDT Inhaled Oxygen Concentration - - Weight 71.7 kg (158 lb) 10/17/2021 10:11 AM CDT Height 180.3 cm (5' 11 ) 10/17/2021 10:11 AM CDT Body Mass Index 22.04 10/17/2021 10:11 AM CDT Plan of Treatment Health Maintenance Due Date Last Done Comments Well Visit 11/20/2018 11/20/2017, 09/29, 09/08/2014, Additional history exists Depression Screening 2019 Hepatitis B Vaccination (1 o f 3 - 19+ 3-dose series) 01/04/2020 Lab-Diabetes Screening (Gluc ose or HgA1c) 10/17/2021 Tdap/Td Vaccination (2 - Td or Tdap) 11/26/2021 11/27/2011 COVID-19 Vaccine (2 - 2023-2 5 season) 2024 09/27/2020 Influenza Vaccination (Seaso n Ended) 2024 04/26/2007 HPV Vaccination Completed 04/18/2013, 07/2012, 09/30/2012 Insurance [facility] PPO [facility] PPO Care Teams Visual Aid Expert Relationship Specialty Start Date End Date Param Woods MD PCP - General Pediatrics 12/16/18
--- OUTSIDE RECORDS SUMMARY | 2024-10-17 18:11 | XMS_ITS | Encounter Summary ---
Author Organization [facility] Address [address] [place] [address] Care Team Providers Care Production Mechanic Name Role Phone Sailaja Jon MD Primary Care Provider [phone] Bessy Escobedo MD Unavailable [phone] Bessy Xavier MD Unavailable Unavailable Thong Yun MD Unavailable [phone] Atiya Romero RN Unavailable Unavailable Nurse, Nr RN Unavailable Unavailable Lynn Mooney MD Unavailable [phone] Yoli Charlton Unavailable Unavailable Candelaria Arreola MD Unavailable Unavaila Param Brock MD Primary Care Provider [phone] Encounter Details Date Type Department Care Team (Late st Contact Info) Description 2001 Duplicate - Created in Error [address] [place] [address] Sailaja Jon MD [address] [place] [address] [address], [address] [place] [address] Social History Tobacco Use Types [...] on filedocumented in this encounter Care Teams Production Mechanic Relationship Specialty Start Date End Date Sailaja Jon MD [address] [facility] Building [address], [address] [place], [place] [address] PCP - General 08/23/03 10/15/16 Param Woods MD PCP - General Pediatrics 10/16/16 Bessy Escobedo MD [address], [address] [place] [address] 11/16/09 Bessy Xavier MD [address], [address] [place] [address] 11/16/09 Thong Yun MD [address] [place] [address] 11/16/09 Atiya Romero, RN 11/16/09 Nurse, Nr, RN 11/16/09 Lynn Mooney MD [facility] 105, [address] [place] [address] 11/16/09 Yoli Charlton 11/16/09 Candelaria Arreola MD 11/16/09 documented as of this encounter
--- OUTSIDE RECORDS SUMMARY | 2024-10-17 18:11 | XMS_ITS | Encounter Summary ---
Author Organization [facility] Address [address] [place] [address] Care Team Providers Care Party Plan Selling Distributor Name Role Phone Sailaja Jon MD Primary Care Provider [phone] Bessy Escobedo MD Unavailable [phone] Bessy Xavier MD Unavailable Unavailable Thong Yun MD Unavailable [phone] Atiya Romero RN Unavailable Unavailable Nurse, Nr RN Unavailable Unavailable Lynn Mooney MD Unavailable [phone] Yoli Charlton Unavailable Unavailable Candelaria Arreola MD Unavailable Unavaila Param Brock MD Primary Care Provider [phone] Encounter Details Date Type Department Care Team (Late st Contact Info) Description 04/08/[address] [address] Sailaja Jon MD [address] [place] [address] [address], [address] [place] [address] Social History Tobacco Use Types [...] on filedocumented in this encounter Care Teams Party Plan Selling Distributor Relationship Specialty Start Date End Date Sailaja Jon MD [address], [address] [place], [place] [address] PCP - General 08/23/03 10/15/16 Param Woods MD PCP - General Pediatrics 10/16/16 Bessy Escobedo MD [address], [address] [place] [address] 11/16/09 Bessy Xavier MD [facility] 105, [address] [place] [address] 11/16/09 Thong Yun MD [address] [place] [address] 11/16/09 Atiya Romero, RN 11/16/09 Nurse, Nr, RN 11/16/09 Lynn Mooney MD [facility] 105, [address] [place] [address] 11/16/09 Yoli Charlton 11/16/09 Candelaria Arreola MD 11/16/09 documented as of this encounter
--- OUTSIDE RECORDS SUMMARY | 2024-10-17 18:11 | XMS_ITS | Encounter Summary ---
Author Organization [facility] Address [address] [place] [address] Care Team Providers Care Tele Rn Name Role Phone Sailaja Jon MD Primary Care Provider [phone] Bessy Escobedo MD Unavailable [phone] Bessy Xavier MD Unavailable Unavailable Thong Yun MD Unavailable [phone] Atiya Romero RN Unavailable Unavailable Nurse, Nr RN Unavailable Unavailable Lynn Mooney MD Unavailable [phone] Yoli Charlton Unavailable Unavailable Candelaria Arreola MD Unavailable Unavaila Param Brock MD Primary Care Provider [phone] Encounter Details Date Type Department Care Team (Late st Contact Info) Description [address] [place] [address] Sailaja Jon MD [address] [place] [address] 103, [address] 0[address] [place] [address] Social History Tobacco Use Types Packs/Day Years Used Date Smoking Tobacco: Never Assessed Sex and Gender Information Value Date Recorded Sex Assigned at Not on file Gender Identity Not on file Sexual Orientation Not on file documented as of this encounter Plan of Treatment Not on file documented as of this encounter Procedures Procedure Name Priority Date/Time Associated Diagnosis Comments [facility] PA AND LAT ([id number]) Routine 2001 1:53 PM CDT documented in this encounter Results * [facility] PA AND LAT (2001 1:53 PM CDT) REPORT STATUS [facility] CHEST, PA & LAT CPT: [id number] DATE: 01 HISTORY: COUGH COMPARISON: NONE FINDINGS: TWO AP VIEWS OF THE CHEST DEMONSTRATE A FAINT FOCUS OF AIR SPACE OPACITY IN THE LEFT LOWER LOBES NOT CONFIRMED ON THE LATERAL VIEWS. THIS MAY REPRESENT AN INFILTRATE OR ATELECTASIS. FOLLOW- UP RIGHT LATERAL DECUBITUS FILMS ARE RECOMMENDED IF CLINICALLY INDICATED. THIS EXAMINATION AND REPORT HAVE BEEN REVIEWED BY THE ATTENDING RADIOLOGIST WHOSE NAME APPEARS ON THIS REPORT. REPORT ELECTRONICALLY SIGNED LAITH RICHMOND M.D. DXRAD Anatomical Region Laterality Modality Other 2001 1:53 PM CDT Narrative 2001 1:53 PM CDT Ordered by an unspecified provider. Provider Unknown RADIOLOGY documented in this encounter Visit Diagnoses Not on filedocumented in this encounter Care Teams Tele Rn Relationship Specialty Start Date End Date Sailaja Jon MD [facility] 103, [address] [place], [place] [address] PCP - General 08/23/03 10/15/16 Param Woods MD PCP - General Pediatrics 10/16/16 Bessy Escobedo MD [facility] [address], [address] [place] [id number] 11/16/09 Bessy Xavier MD [facility] 105, [address] [place] [address] 11/16/09 Thong Yun MD [address] [place] [address] [id number] 11/16/09 Atiya Romero, RN 11/16/09 Nurse, Nr, RN 11/16/09 Lynn Mooney MD [address], [address] [place] [address] 11/16/09 Yoli Charlton 11/16/09 Candelaria Arreola MD 11/16/09 documented as of this encounter
--- OUTSIDE RECORDS SUMMARY | 2024-10-17 18:11 | XMS_ITS | Encounter Summary ---
Author Organization [facility] Address [address] [place] [address] Care Team Providers Care Certified Adapted Physical Educator Name Role Phone Sailaja Jon MD Primary Care Provider [phone] Bessy Escobedo MD Unavailable [phone] Bessy Xavier MD Unavailable Unavailable Thong Yun MD Unavailable [phone] Atiya Romero RN Unavailable Unavailable Nurse, Nr RN Unavailable Unavailable Lynn Mooney MD Unavailable [phone] Yoli Charlton Unavailable Unavailable Candelaria Arreola MD Unavailable Unavaila Param Brock MD Primary Care Provider [phone] Encounter Details Date Type Department Care Team (Late st Contact Info) Description 02/12/2002 Duplicate - Created in Error [address] [place] [address] Sailaja Jon MD [address] [place] [address] [address], [address] [place] [address] Social History Tobacco Use Types [...] on filedocumented in this encounter Care Teams Certified Adapted Physical Educator Relationship Specialty Start Date End Date Sailaja Jon MD [address] [facility] Building 103, [address] [place], [place] [address] PCP - General 08/23/03 10/15/16 Param Woods MD PCP - General Pediatrics 10/16/16 Bessy Escobedo MD [address], [address] [place] [address] 11/16/09 Bessy Xavier MD [address], [address] [place] [address] 11/16/09 Thong Yun MD [address] [place] [address]97[address] 11/16/09 Atiya Romero, RN 11/16/09 Nurse, Nr, RN 11/16/09 Lynn Mooney MD [facility] 105, [address] [place] [address] 11/16/09 Yoli Charlton 11/16/09 Candelaria Arreola MD 11/16/09 documented as of this encounter
--- OUTSIDE RECORDS SUMMARY | 2024-10-17 18:11 | XMS_ITS | Encounter Summary ---
Author Organization [facility] Address [address] [place] [address] Care Team Providers Care Afternoon Babysitter Name Role Phone Sailaja Jon MD Primary Care Provider [phone] Bessy Escobedo MD Unavailable [phone] Bessy Xavier MD Unavailable Unavailable Thong Yun MD Unavailable [phone] Atiya Romero RN Unavailable Unavailable Nurse, Nr RN Unavailable Unavailable Lynn Mooney MD Unavailable [phone] Yoli Charlton Unavailable Unavailable Candelaria Arreola MD Unavailable Unavaila Param Brock MD Primary Care Provider [phone] Encounter Details Date Type Department Care Team (Late st Contact Info) Description 2001 Duplicate - Created in Error [address] [place] [address] Sailaja Jon MD [address] [place] [address] [address], [address] [place] [address] Social History Tobacco Use Types [...] on filedocumented in this encounter Care Teams Afternoon Babysitter Relationship Specialty Start Date End Date Sailaja Jon MD [address] [facility] Building 103, [address] [place], [place] [address] PCP - General 08/23/03 10/15/16 Param Woods MD PCP - General Pediatrics 10/16/16 Bessy Escobedo MD [address], [address] [place] [address] 11/16/09 Bessy Xavier MD [address], [address] [place] [address] 11/16/09 Thong Yun MD [address] [place] [address] 930407 11/16/09 Atiya Romero, RN 11/16/09 Nurse, Nr, RN 11/16/09 Lynn Mooney MD [facility] 105, [address] [place] [address] 11/16/09 Yoli Charlton 11/16/09 Candelaria Arreola MD 11/16/09 documented as of this encounter
--- OUTSIDE RECORDS SUMMARY | 2024-10-17 18:11 | XMS_ITS | Encounter Summary ---
Author Organization [facility] Address [address] [place] [address] Care Team Providers Care Vacuum Worker Name Role Phone Sailaja Jon MD Primary Care Provider [phone] Bessy Escobedo MD Unavailable [phone] Bessy Xavier MD Unavailable Unavailable Thong Yun MD Unavailable [phone] Atiya Romero RN Unavailable Unavailable Nurse, Nr RN Unavailable Unavailable Lynn Mooney MD Unavailable [phone] Yoli Charlton Unavailable Unavailable Candelaria Arreola MD Unavailable Unavaila Param Brock MD Primary Care Provider [phone] Encounter Details Date Type Department Care Team (Late st Contact Info) Description 04/01/2003 Duplicate - Created in Error [address] [place] [address] Bessy Xavier MD Social History [...] on filedocumented in this encounter Care Teams Vacuum Worker Relationship Specialty Start Date End Date Sailaja Jon MD [address] [place] [address] [address], [address] [place] [address] PCP - General 08/23/03 10/15/16 Param Woods MD PCP - General Pediatrics 10/16/16 Bessy Escobedo MD [address], [address] [place] [address] 11/16/09 Bessy Xavier MD [address], [address] [place] [address] 11/16/09 Thong Yun MD [address] [place] [address] 11/16/09 Atiya Romero, ОЛЕГ 11/16/09 Nurse, Nr, RN 11/16/09 Lynn Mooney MD [facility] 105, [address] [place] [address] 11/16/09 Yoli Charlton 11/16/09 Candelaria Arreola MD 11/16/09 documented as of this encounter
--- OUTSIDE RECORDS SUMMARY | 2024-10-17 18:11 | XMS_ITS | Encounter Summary ---
Author Organization [facility] Address [address] [place] [address] Care Team Providers Care Evaporator Name Role Phone Sailaja Jon MD Primary Care Provider [phone] Bessy Escobedo MD Unavailable [phone] Bessy Xavier MD Unavailable Unavailable Thong Yun MD Unavailable [phone] Atiya Romero RN Unavailable Unavailable Nurse, Nr RN Unavailable Unavailable Lynn Mooney MD Unavailable [phone] Yoli Charlton Unavailable Unavailable Candelaria Arreola MD Unavailable Unavaila Param Brock MD Primary Care Provider [phone] Encounter Details Date Type Department Care Team (Late st Contact Info) Description 2001 Duplicate - Created in Error [facility] [address] [place] [address] Bessy Escobedo MD [address], [address] [place] [address] Social History Tobacco Use Types [...] on filedocumented in this encounter Care Teams Evaporator Relationship Specialty Start Date End Date Sailaja Jon MD [address], [address] [place], [place] [address] PCP - General 08/23/03 10/15/16 Param Woods MD PCP - General Pediatrics 10/16/16 Bessy Escobedo MD [address], [address] [place] [address] 11/16/09 Bessy Xavier MD [address], [address] [place] [address] 11/16/09 Thong Yun MD [address] [place] [address] 11/16/09 Atiya Romero, RN 11/16/09 Nurse, Nr, RN 11/16/09 Lynn Mooney MD [facility] 105, [address] [place] [address] 11/16/09 Yoli Charlton 11/16/09 Candelaria Arreola MD 11/16/09 documented as of this encounter
--- OUTSIDE RECORDS SUMMARY | 2024-10-17 18:11 | XMS_ITS | Encounter Summary ---
Author Organization [facility] Address [address] [place] [address] Care Team Providers Care Container Shop Welder Name Role Phone Sailaja Jon MD Primary Care Provider [phone] Bessy Escobedo MD Unavailable [phone] Bessy Xavier MD Unavailable Unavailable Thong Yun MD Unavailable [phone] Atiya Romero RN Unavailable Unavailable Nurse, Nr RN Unavailable Unavailable Lynn Mooney MD Unavailable [phone] Yoli Charlton Unavailable Unavailable Candelaria Arreola MD Unavailable Unavaila Param Brock MD Primary Care Provider [phone] Encounter Details Date Type Department Care Team (Late st Contact Info) Description 01/06/2002 Duplicate - Created in Error [address] [place] [address] Sailaja Jon MD [address] [place] [address] [address], [address] [place] [address] Social History Tobacco Use Types [...] on filedocumented in this encounter Care Teams Container Shop Welder Relationship Specialty Start Date End Date Sailaja Jon MD [address] [facility] Building 103, [address] [place], [place] [address] PCP - General 08/23/03 10/15/16 Param Woods MD PCP - General Pediatrics 10/16/16 Bessy Escobedo MD [address], [address] [place] [address] 11/16/09 Bessy Xavier MD [address], [address] [place] [address] 11/16/09 Thong Yun MD [address] [place] [address] 11/16/09 Atiya Romero, RN 11/16/09 Nurse, Nr, RN 11/16/09 Lynn Mooney MD [facility] 105, [address] [place] [address] 11/16/09 Yoli Charlton 11/16/09 Candelaria Arreola MD 11/16/09 documented as of this encounter
--- OUTSIDE RECORDS SUMMARY | 2024-10-17 18:11 | XMS_ITS | Clinical Summary ---
Author Organization [facility] Address [address] [place] [address] Care Team Providers Care Phlebotomy Lab Assistant Name Role Phone Bessy Escobedo MD Unavailable [phone] Bessy Xavier MD Unavailable Unavailable Thong Yun MD Unavailable Atiya Romero RN Unavailable Unavailable Nurse, Shanna RN Unavailable Unavailable Lynn Mooney MD Unavailable [phone] Yoli Charlton Unavailable Unavailable Candelaria Arreola MD Unavailable Unavaila Param Brock MD Primary Care Provider [phone] Source Comments You are receiving this document as you are listed as the PCP, follow-upprovider, or the patient hasbeen referred to you for consultation. This is incompliance with [facility] Transitions of Care Requirement. Note: Specific treatmentrecords and notes about services for mental health, developmental disabilities,alcoholism, drug dependence, or substance abuse, you will need to contact theMedical Records Department at [phone] and complete a separate Release ofAuthorization form. They are also available to answer other questions.[facility] Allergies No known active allergies Medications * Please verify all current medications with the patient. Medication Sig Dispensed Refills Start Date End Date Status GuanFACINE HCl (INTUNIV) 2 MG PO TB24 Take 2 mg by mouth daily. 30 Tab 0 09/30/2012 Active Additional Information Patient not taking.Reported on 11/20/2017 Lisdexamfetamine Dimesylate (VYVANSE) 20 MG Cap Take by mouth. Active citalopram (CELEXA) 10 MG tablet Take 10 mg by mouth daily. Active Active Problems Problem Noted Date Diagnosed Date Attention deficit disorder 11/20/2017 Anxiety 11/20/2017 Routine or child health check 10/18/2013 Urinary problem 10/01/2012 - parents 11/27/2011 Attention deficit disorder with hyperactivity(31 4.01) 05/22/2006 Resolved Problems Problem Noted Date Diagnosed Date Resolved Date Poor appetite 10/08/2009 11/27/2011 Other developmental speech o r language disorder 05/22/2006 12/14/2008 Immunizations Name Administration Dates Next Due DTaP (Daptacel) <7 yrs (Inactive) 2004,07/06/2002,2001,04/30/20,2001 HIB (Unspecified) 01/05/2002,2001,03/01/20 HPV Quadravalent (Gardasil) 04/18/2013, 3,09/30/2012 Hep A (Pediatrics) 11/27/2011,12/21/2009 Hepatitis B Peds & Adolescents 2001,2000,2001 IPV (Polio) 01/24/2005, 3,2001,03/01/20 Influenza Vaccine 04/26/2007 Influenza Vaccine 3 y & above 05/07/2005 Influenza Vaccine 4-17 04/16/2006 MMR 01/24/2005,01/05/2002 Meningococcal MCV4P (Menactra) 09/30/2012 Pneumococcal Polysaccharide PPSV23 2001,,2001 Tdap (Boostrix) 11/27/2011 Varicella 12/21/2009,04/06/2002 Social History Tobacco Use [...] Sign Reading Time Taken Comments Blood Pressure 100/58 11/20/2017 8:41 AM CDT Pulse 86 10/16/2016 4:11 PM CDT Temperature 36.7 C (98 F) 09/08/2014 9:10 AM CDT Respiratory Rate 20 09/08/2014 9:10 AM CDT Oxygen Saturation - - Inhaled Oxygen Concentration - - Weight 56.4 kg (124 lb 4.8 oz) 11/20/2017 8:41 A M CDT Height 177.4 cm (5' 9.84 ) 11/20/2017 8:41 AM CD T Body Mass Index 17.92 11/20/2017 8:41 AM CDT Plan of Treatment Health Maintenance Due Date Last Done Comments ANNUAL BMI COUNSELING 2003 HIV SCREEN 01/04/2016 ANNUAL DEPRESSION SCREENING,ADULT 11/20/2018 11/20/2017 CHOL SCREENING: EVERY 5 YEARS 2021 12/26/2010, 07/07/2009, 06/02/2008, Additional history exists ADULT VACCINE: TETANUS( TD) BOOSTER,EVERY 10 YR 11/26/2021 11/27/2011 Covid-19 Vaccine ( season) 2024 INFLUENZA VACCINE (Season Ended) 2025 04/26/2007 ADULT VACCINE: SHINGRIX (1 of 2) 2051 PNEUMOCOCCAL VACCINE Aged Out 2001, 2001, 2001 No longer eligible based on patient's age to complete this topic VACCINE: HPV (CDC RULES) Completed 013, 11/30/2012, 09/30/2012 PEDS RSV < 20 MON Aged Out No longer eligible based on patient's age to complete this topic Procedures Procedure Name Priority Date/Time Associated Diagnosis Comments LIPID PROFILE Routine 12/26/2010 5:03 PM CDT Poor appetite ADD OF CHILDHOOD WITH HYPERACTIVITY from Last 3 Months or Most Recently Relevant to Health Maintenance Results * LIPID PROFILE (12/26/2010 5:03 PM CDT) CHOLESTEROL 137 115 - 170 MG/DL [facility] Comment:BASED ON CURRENT KAYLIE DELINES, THIS LEVEL IS DESIRABLE. TRIGLYCERIDE 36 33 - 85 MG/DL [facility] Comment: TRIGLYCERIDE REFERENCE RANGE APPLIES TO FASTING SAMPLE * * * * BASED ON CURRENT GUIDELINES, THIS LEVEL IS NORMAL. HDL CHOLESTEROL 55 >39 MG/DL [facility] Comment:BASED ON CURRENT KAYLIE DELINES, THIS LEVEL IS DESIRABLE. LDL CHOLESTEROL 76 <100 MG/DL [facility] Comment:BASED ON CURRENT KAYLIE DELINES, THIS LEVEL IS OPTIMAL. NON-HDL CHOL (CALC) 82 <160 MG/DL [facility] Blood specimen (specimen) 12/26/2010 5:03 PM CDT 12/26/2010 9:03 PM CDT Candelaria Arreola MD LABORATORY [facility] [address] [place] [address], [facility] from Last 3 Months or Most Recently Relevant to Health Maintenance Care Teams Phlebotomy Lab Assistant Relationship Specialty Start Date End Date Param Woods MD PCP - General Pediatrics 10/16/16 Bessy Escobedo MD [address], [address] [place] [address] 11/16/09 Bessy Xavier MD [facility] 105, [address] [place] [address] 11/16/09 Thong Yun MD [address] [place] [address] 11/16/09 Atiya Romero RN 11/16/09 Nurse, Nr, RN 11/16/09 Lynn Mooney MD [address], [address] [place] [address] 11/16/09 Yoli Charlton 11/16/09 Candelaria Arreola MD 11/16/09
--- OUTSIDE RECORDS SUMMARY | 2024-10-17 18:11 | XMS_ITS | Encounter Summary ---
Author Organization [facility] Address [address] [place] [address] Care Team Providers Care Yarn Hauler Name Role Phone Sailaja Jon MD Primary Care Provider [phone] Bessy Escobedo MD Unavailable [phone] Bessy Xavier MD Unavailable Unavailable Thong Yun MD Unavailable [phone] Atiya Romero RN Unavailable Unavailable Nurse, Nr RN Unavailable Unavailable Lynn Mooney MD Unavailable [phone] Yoli Charlton Unavailable Unavailable Candelaria Arreola MD Unavailable Unavaila Param Brock MD Primary Care Provider [phone] Encounter Details Date Type Department Care Team (Late st Contact Info) Description 04/19/2003 Duplicate - Created in Error [address] [place] [address] Sailaja Jon MD [address] [place] [address] [address], [address] [place] [address] Social History Tobacco Use Types [...] on filedocumented in this encounter Care Teams Yarn Hauler Relationship Specialty Start Date End Date Sailaja Jon MD [address] [facility] Building 103, [address] [place], [place] [address] PCP - General 08/23/03 10/15/16 Param Woods MD PCP - General Pediatrics 10/16/16 Bessy Escobedo MD [address], [address] [place] [address] 11/16/09 Bessy Xavier MD [address], [address] [place] [address] 11/16/09 Thong Yun MD [address] [place] [address]67 11/16/09 Atiya Romero, RN 11/16/09 Nurse, Nr, RN 11/16/09 Lynn Mooney MD [facility] 105, [address] [place] [address] 11/16/09 Yoli Charlton 11/16/09 Candelaria Arreola MD 11/16/09 documented as of this encounter
--- OUTSIDE RECORDS SUMMARY | 2024-10-17 18:11 | XMS_ITS | Referral Summary ---
Author Organization [facility] Address [address] [place] [address] Care Team Providers Care Artillery Or Naval Gunfire Observer Name Role Phone Bessy Escobedo MD Unavailable [phone] Bessy Xavier MD Unavailable Unavailable Thong Yun MD Unavailable [phone] Atiya Romero RN Unavailable Unavailable Nurse, Shanna RN Unavailable Unavailable Lynn Mooney MD Unavailable [phone] Yoli Charlton Unavailable Unavailable Candelaria Arreola MD Unavailable Unavaila Param Brock MD Primary Care Provider [phone] Source Comments You are receiving this document as you are listed as the PCP, follow-upprovider, or the patient hasbeen referred to you for consultation. This is incompliance with [facility] Transitions of Care Requirement. Note: Specific treatmentrecords and notes about services for mental health, developmental disabilities,alcoholism, drug dependence, or substance abuse, you will need to contact theMedical Records Department at [phone] and complete a separate Release ofAuthorization form. They are also available to answer other questions.[facility] Allergies No known active allergies Medications * [...] cm (5' 9.84 ) 11/20/2017 8:41 AM C DT Body Mass Index 17.92 11/20/2017 8:41 AM CDT Plan of Treatment Not on file Procedures Procedure Name Priority Date/Time Associated Diagnosis Comments LIPID PROFILE Routine 12/26/2010 5:03 PM CDT Poor appetite ADD OF CHILDHOOD WITH HYPERACTIVITY from Last 3 Months or Most Recently Relevant to Health Maintenance Results * LIPID PROFILE (12/26/2010 5:03 PM CDT) CHOLESTEROL 137 115 - 170 MG/DL [facility] Comment:BASED ON CURRENT KAYLIE DELINES, THIS LEVEL IS DESIRABLE. TRIGLYCERIDE 36 33 - 85 MG/DL [facility] Comment: TRIGLYCERIDE REFERENCE RANGE APPLIES TO FASTING SAMPLE * * * * BASED ON CURRENT GUIDELINES, THIS LEVEL IS NORMAL. HDL CHOLESTEROL 55 >39 MG/DL [facility] Comment:BASED ON CURRENT KAYLIE DELINES, THIS LEVEL IS DESIRABLE. LDL CHOLESTEROL 76 <100 MG/DL [facility] Comment:BASED ON CURRENT KAYLIE DELINES, THIS LEVEL IS OPTIMAL. NON-HDL CHOL (CALC) 82 <160 MG/DL [facility] Blood specimen (specimen) 12/26/2010 5:03 PM CDT 12/26/2010 9:03 PM CDT Candelaria Arreola MD LABORATORY [facility] [address] [place] [address], [facility] from Last 3 Months or Most Recently Relevant to Health Maintenance Administered Medications Care Teams Artillery Or Naval Gunfire Observer Relationship Specialty Start Date End Date Param Woods MD PCP - General Pediatrics 10/16/16 Bessy Escobedo MD [facility] 105, [address] [place] [address] 11/16/09 Bessy Xavier MD [facility] 105, [address] [place] [address] 11/16/09 Thong Yun MD [address] [place] [address] 11/16/09 Atiya Romero, RN 11/16/09 Nurse, Nr, RN 11/16/09 Lynn Mooney MD [facility] 105, [address] [place] [address] 11/16/09 Yoli Charlton 11/16/09 Candelaria Arreola MD 11/16/09
--- OUTSIDE RECORDS SUMMARY | 2024-10-17 18:11 | XMS_ITS | Clinical Summary ---
Author Organization [facility] Address [address] [place] [address] Phone Care Team Providers Care Fruit Dumper Name Role Phone Jairon Mcgee MD Primary Care Provider Unavailab le Medications cholecalciferol (VITAMIN D-3) 1.25 MG (84511 UT) capsule Take 1.25 mg by mouth per week 07/24/2022 Active hydrOXYzine (ATARAX) 25 MG tablet Take 25 mg by mouth every 4 (four) hours if needed 07/23/2022 Active LORazepam (ATIVAN) 0.5 MG tablet Take 0.5 mg by mouth every 8 (eight) hours 12/24/2022 Active propranolol (INDERAL) 10 MG tablet Take 10 mg by mouth in the morning and 10 mg in the evening. 07/23/2022 Active QUEtiapine (SEROquel) 300 MG tablet Take 1 tablet by mouth every night 07/23/2022 Active sertraline (ZOLOFT) 50 MG tablet Take 50 mg by mouth in the morning. 09/24/2022 Active Active Problems Problem Noted Date Diagnosed Date Bipolar disorder 08/08/2022 01/09/2023 Vitamin D deficiency 07/17/2022 01/09/2023 Alcohol intake above recommended sensible limits 07/16/2022 01/09/2023 Palpitations with regular rhythm 07/16/2022 01/09/2023 Cannabis use, unspecified, uncomplicated 023 01/09/2023 Generalized anxiety disorder 07/14/202204/2023 Marijuana user 07/14/2022 01/09/2023 Severe mixed bipolar I disorder without psychoti c features 01/30/2021 01/09/2023 Abdominal pain 01/27/2021 01/09/2023 Anxiety 11/20/2017 01/09/2023 Attention-deficit hyperactiv ity disorder predominantly inattentive type 11/20/2017 01/09/2023 Panic disorder without agoraphobia 11/20/2017 01/09/2023 Routine infant or child health check 10/18/2013 01/09/2023 Disorder of urinary system 10/01/201201/09 11/27/2011 01/09/2023 Immunizations Immunization Administration Dates Next Due DTaP 5 01/24/2005, 3,2001,04/30,2001 DTaP, Unspecified 01/24/2005, 3,2001,04/30,2001 HPV, Quadrivalent 04/18/2013,11/30/2012,10/01/19 13 Hep A, 2 Dose 11/27/2011,12/21/2009 Hep B, Adolescent or Pediatric 2001,2000,2001 HiB 01/05/2002,2001,2001 IPV 01/24/2005, 3,2001,03/01 Influenza TIV (IM) 04/26/2007 Influenza, Injectable, Quadr ivalent, Preservative Free 04/16/2006 Influenza, Unspecified 04/26/2007,04/16/2006 MMR 01/24/2005,01/05/2002 Meningococcal Conjugate 10/28/2017 Meningococcal MCV4P 10/28/2017,09/30/2012 Rho (D) Immune Globulin 05/07/2005 Tdap 11/27/2011 Varicella 12/21/2009,04/06/2002 Social History Tobacco Use Types Packs/Day Years Used Date Smoking Tobacco: Never Assessed Sex and Gender Information Value Date Recorded Sex Assigned at Not on file Legal Sex Male 1:02 PM MDT Gender Identity Not on file Sexual Orientation Not on file Plan of Treatment Health Maintenance Due Date Last Done Comments Pneumococcal PPSV23 Highest Risk Adult (1 of 3 - PCV13) 01/04/2020 COVID-19 Vaccine (3 - 2023-2 5 season) 2024 09/27/2020, 09/06/2020 Influenza Vaccine (Season Ended) 2025 04/26/2007, 04/26/2007, 04/16/2006, Additional history exists Insurance BLUE CROSS - ID Care Teams Fruit Dumper Relationship Specialty Start Date End Date Jairon Mcgee MD [address] [place] [address] PCP - General Internal Medicine 01/02/23
--- OUTSIDE RECORDS SUMMARY | 2024-10-17 18:11 | XMS_ITS | Encounter Summary ---
Author Organization [facility] Address [address] [place] [address] Care Team Providers Care Vp Customer Development Name Role Phone Sailaja Jon MD Primary Care Provider [phone] Bessy Escobedo MD Unavailable [phone] Bessy Xavier MD Unavailable Unavailable Thong Yun MD Unavailable [phone] Atiya Romero RN Unavailable Unavailable Nurse, Nr RN Unavailable Unavailable Lynn Mooney MD Unavailable [phone] Yoli Charlton Unavailable Unavailable Candelaria Arreola MD Unavailable Unavaila Param Brock MD Primary Care Provider [phone] Encounter Details Date Type Department Care Team (Late st Contact Info) Description 01/14/2002 Duplicate - Created in Error [address] [place] [address] Sailaja Jon MD [address] [place] [address] [address] [place] [address] Social History Tobacco Use Types [...] on filedocumented in this encounter Care Teams Vp Customer Development Relationship Specialty Start Date End Date Sailaja Jon MD [address] [facility] [address] [place], [place] [address] PCP - General 08/23/03 10/15/16 Param Woods MD PCP - General Pediatrics 10/16/16 Bessy Escobedo MD [address] [place] [address] 11/16/09 Bessy Xavier MD [address] [place] [address] 11/16/09 Thong Yun MD [address] [place] [address] [id number] 11/16/09 Atiya Romero, RN 11/16/09 Nurse, Nr, RN 11/16/09 Lynn Monoey MD [facility] [address] [place] [address] 11/16/09 Yoli Charlton 11/16/09 Candelaria Arreola MD 11/16/09 documented as of this encounter
--- OUTSIDE RECORDS SUMMARY | 2024-10-17 18:11 | XMS_ITS | Encounter Summary ---
Author Organization [facility] Address [address] [place] [address] Care Team Providers Care Vp Sales Name Role Phone Sailaja Jon MD Primary Care Provider [phone] Bessy Escobedo MD Unavailable [phone] Bessy Xavier MD Unavailable Unavailable hTong Yun MD Unavailable [phone] Atiya Romero RN Unavailable Unavailable Nurse, Nr RN Unavailable Unavailable Lynn Mooney MD Unavailable [phone] Yoli Charlton Unavailable Unavailable Candelaria Arreola MD Unavailable Unavaila Param Brock MD Primary Care Provider [phone] Encounter Details Date Type Department Care Team (Late st Contact Info) Description 06/17/2002 Duplicate - Created in Error [address] [place] [address] Sailaja Jon MD [address] [place] [address] [address] [place] [address] Social History Tobacco Use Types [...] filedocumented in this encounter Care Teams Vp Sales Relationship Specialty Start Date End Date Sailaja Jon MD [address] [facility] [address] [place], [place] [address] PCP - General 08/23/03 10/15/16 Param Woods MD PCP - General Pediatrics 10/16/16 Bessy Escobedo MD [address] [place] [address] 11/16/09 Bessy Xavier MD [address] [place] [address] 11/16/09 Thong Yun MD [address] [place] [address] [id number] 11/16/09 Atiya Romero, RN 11/16/09 Nurse, Nr, RN 11/16/09 Lynn Mooney MD [facility] [address] [place] [address] 11/16/09 Yoli [place] 11/16/09 Candelaria Arreola MD 11/16/09 documented as of this encounter
--- OUTSIDE RECORDS SUMMARY | 2024-10-17 18:11 | XMS_ITS | Clinical Summary ---
Author Organization [facility] Address [address] [place] [address] Care Team Providers Care Sweet Pickle Maker Name Role Phone Jeyson Mcgee M.D. Unavailable [phone] Jb Tadeo M.D. Unavailable [phone] Jeyson Mcgee M.D. Primary Care Provider [phone] Allergies No known active allergies Medications acetylcysteine (NAC ORAL) Take by mouth. Active MAGNESIUM GLYCINATE ORAL Take by mouth. Active Ubidecar/Fish Oil/Chromo-3/Vit E (CO M72-[id number] OIL-OMEGA 3-E ORAL) Take by mouth. Active QUEtiapine (SEROqueL) 300 mg tabletIndicatio ns:Bipolar affective disorder, current episode hypomanic (CMS/HCC) Take 1 tablet by mouth every night at bedtime. 90 tablet 1 12/24/2022 Active sertraline (ZOLOFT) 50 mg tabletIndicatio ns:Bipolar affective disorder, current episode hypomanic (CMS/HCC) Take 1 tablet by mouth daily. 90 tablet 1 12/24/2022 Active LORazepam (Ativan) 0.5 mg tabletIndicatio ns:Bipolar affective disorder, current episode hypomanic (CMS/HCC) Take 1 tablet by mouth every 8 hours as needed for anxiety or agitation. 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 07/14/2022 Bipolar I disorder, most rec ent episode mixed, severe without psychotic features 01/30/2021 Anxiety 11/20/2017 Attention deficit hyperactivity disorder (ADHD) 05/22/2006 Immunizations Immunization Administration Dates Next Due Covid-19 Vaccine ([employer]) (Pat Dangelo), 12 Years To Adult 06/21/2021 Covid-19 Vaccine (Pfizer), 1 2 Years to Adult 09/27/2020,09/06/2020 Dtap, 5 Pertussis Antigens - External ,07/06/2002,2001,04/30,2001 Dtap, Unspecified Formulatio n - External 01/24/2005,07/06/2002,2001,04/30,2001 Hepatitis A Vaccine, 18 Yrs or Less 11/27/2011,0 12/21/2009 Hepatitis B Vaccine, (19 Yrs or Less) (3-Dose Series) 2001,2001,2001 Hib, Unspecified Formulation - External 01/05/2002,2001,2001 Human Papillomavirus Vaccine , Quadrivalent 04/18/2013,11/30/2012,09/30/2012 Inactivated Polio Vaccine (IPV) 01/25/20 05,07/06/2002,2001,03/01 Influenza Vaccine (FLUARIX) (6 Months to Adult) 04/16/2006 Influenza, Seasonal, Injecta ble - External 04/26/2007 Influenza, Unspecified Formu lation - External 04/26/2007,04/16/2006 Measles, Mumps & Rubella (MMR) 01/24/2005,2001 MenACWY-D (Menactra) (9 dorys hs or older) 10/28/2017,09/30/2012 Meningococcal Mcv4o - External 10/28/2017 Pneumococcal Polysaccharide Vaccine(Pneumovax 23) 2001,2001,2001 Rho(d) -Ig Im - External 05/07/2005 Tdap Vaccine 11/27/2011 Varicella Zoster Vaccine (Chickenpox) 12/21/2009 ,04/06/2002 Family History Medical History Relation Comments No PMH Father No PMH Mother Relation Status Comments Brother Alive Father Alive Mother Alive Sister Alive Social History Tobacco Use Types Packs/Day Years Used Date Smoking Tobacco: Never Smokeless Tobacco: Never Tobacco Cessation:Counseling Given: Not Answered Alcohol Use Standard Drinks/Week Comments Not Currently 0 (1 standard drink = 0.6 oz pur e alcohol) once a month AUDIT-C Answer Date Recorded Q1: How often do you have a drink containing alc ohol? Monthly or less 07/14/2022 Q2: How many drinks containi ng alcohol do you have on a typical day when you are drinking? 1 or 2 07/14/2022 Q3: How often do you have si x or more drinks on one occasion? Never 07/14/2022 PHQ-2 Answer Date Recorded PHQ-2 Score 4 07/14/2022 Sex and Gender Information Value Date Recorded Sex Assigned at Not on file Legal Sex Male 4:44 PM SECTION CUTTER Gender Identity Not on file Sexual Orientation Not on file Last Filed Vital Signs Vital Sign Reading Time Taken Comments Blood Pressure 110/80 12/24/2022 10:39 AM CDT Pulse 91 12/24/2022 10:39 AM CDT Temperature 36.8 C (98.3 F) 12/24/2022 10:39 AM CDT Respiratory Rate 20 07/14/2022 10:05 AM SECTION CUTTER Oxygen Saturation 97% 12/24/2022 10:39 AM CDT Inhaled Oxygen Concentration - - Weight 79.4 kg (175 lb) 12/24/2022 10:39 AM CDT Height 180.3 cm (5' 11 ) 12/24/2022 10:39 AM CDT Body Mass Index 24.41 12/24/2022 10:39 AM CDT Plan of Treatment Health Maintenance Due Date Last Done Comments HEPATITIS C SCREENING 2001 HIV SCREENING 01/04/2016 TDAP/TD VACCINE (7 - Td or Tdap) 11/26/2021 11/27/2011, 01/24/2005, 07/06/2002, Additional history exists DEPRESSION MONITORING (ACTIVE DEPRESSION) 09/05/2022 08/08/2022, 07/14/2022 COVID-19 VACCINE ( season) 2024 06/21/2021, 09/27/2020, 09/06/2020 INFLUENZA VACCINE (Season Ended) 2025 04/26/2007, 04/26/2007, 04/16/2006, Additional history exists ZOSTER SERIES VACCINE (1 of 2) 2051 Adult RSV VACCINE (1 - 1-dose 75+ series) 01/04/2076 Pneumococcal Vaccine: Childhood and At-Risk Adult <65 yo Series Aged Out 2001, 2001, 2001 No longer eligible based on patient's age to complete this topic HPV VACCINE Completed 04/18/2013, 07/2012, 09/30/2012 Insurance /BS PPO /BS PPO BC/BS PPO Care Teams Sweet Pickle Maker Relationship Specialty Start Date End Date Jeyson Mcgee [place].D. [address] [place] [address] PCP - General Family Practice 08/01/22 Jeyson Mcgee [place].D. [address] [place] [address] Referring Provider Family Practice 07/14/22 Jb Tadeo [place]. [address] [place] [address] Referring Provider Cardiology 08/01/22
--- OUTSIDE RECORDS SUMMARY | 2024-10-17 18:11 | XMS_ITS | Clinical Summary ---
Author Organization [facility] (Prior to 03/01/22) Address [address] [place] [address] Care Team Providers Care Optical Instrument Repairer Name Role Phone Sailaja Jon MD Primary Care Provider [phone] Allergies No known active allergies Medications Medication Sig Dispensed Refills Start Date End Date Status lisdexamfetamine (VYVANSE) 30 MG capsule Take 30 mg by mouth every morning. 0 Active guanFACINE 2 mg tablet extended release 24 hr Take 2 mg by mouth. 0 Active Social History Tobacco Use Types Packs/Day Years Used Date Never Assessed Sex Assigned at Date Recorded Not on file Last Filed Vital Signs Vital Sign Reading Time Taken Comments Blood Pressure 108/62 10/01/2015 4:14 PM CDT Pulse 80 10/01/2015 4:14 PM CDT Temperature 36.8 C (98.3 F) 10/01/2015 4:14 PM CDT Respiratory Rate 14 10/01/2015 4:14 PM CDT Oxygen Saturation - - Inhaled Oxygen Concentration - - Weight 51.7 kg (114 lb) 10/01/2015 4:14 PM CDT Height - - Body Mass Index - - Plan of Treatment Health Maintenance Due Date Last Done Comments Annual Wellness Visit 2001 COVID-19 Vaccine (#1) 2001 Influenza Vaccine 01/30/2025 Advance Directives For more information, please contact: [phone] Documents on File Type Date Recorded Patient Solution Professional Expl anation Advance Directives and Carolyn Rutherford Power of Sales Producer 10/01/2015 2:52 PM Care Teams Optical Instrument Repairer Relationship Specialty Start Date End Date Sailaja Jon MD [address] [place] [address] PCP - General Pediatrics 10/01/15
== END 2024-10-17 18:18 | disposition home or self-care (01) ==
LOC: ANHED 18:08
PROVIDERS: Physician Assistant; Emergency Provider Physician Assistant
DX: N34.2 Other urethritis (principal)
CPT/HCPCS: 36415; 74176; 80053; 81003; 83690; 85025; 87491; 87591; 87661; 99284